=== PATIENT | female | born 1935 | race Caucasian/White ===

== ENCOUNTER → 2018-01-12 09:26 | Outpatient (CLI) | payer MEDICARE, SELFPAY ==
--- NOTE | 2018-01-12 | DI.MG.S_ITS ---
BILATERAL DIGITAL SCREENING MAMMOGRAM 3D/2D WITH CAD: 01/12/2018 CLINICAL: Routine screening. Family history of breast cancer. Comparison is made to exams dated: 01/01/2017 mammogram, 12/30/2015 mammogram, and 12/17/2014 mammogram - [facility]. There are scattered fibroglandular elements in both breasts. Current study was also evaluated with a Computer Aided Detection (CAD) system. There are benign vascular calcifications in both breasts. No significant masses, calcifications, or other findings are seen in either breast. There has been no significant interval change. IMPRESSION: BENIGN There is no mammographic evidence of malignancy. A 1 year screening mammogram is recommended. This exam was interpreted at Station ID: [id number]. NOTE: For mammograms, a report in lay terms will be sent to the patient. Approximately 15% of breast malignancies will not be visualized mammographically. In the management of a palpable breast mass, a negative mammogram must not discourage biopsy of a clinically suspicious lesion. Electronically Signed By: Shayla lea/herbert:01/14/2018 11:27:40 letter sent: Normal Exam ACR BI-RADS Category 2: Benign Finding(s) 3342F
== END ==
PROVIDERS: PCP Internal Medicine; Visit Provider Internal Medicine
DX: Z12.31 Encounter for screening mammogram for malignant neoplasm of breast (principal); Z80.3 Family history of malignant neoplasm of breast
CPT/HCPCS: 77063; 77067

== ENCOUNTER → 2018-10-29 09:49 | Outpatient (CLI) | payer MEDICARE, SELFPAY ==
--- NOTE | 2018-10-29 | DI.RAD.S_ITS ---
PROCEDURE: XR CHEST 2V INDICATIONS: ACUTE BRONCHITIS TECHNIQUE: 2 views of the chest were acquired. COMPARISON: None. FINDINGS: Surgical changes and devices: None. Lungs and pleura: Left lower lobe infiltrate suspicious for developing pneumonia. No pleural effusions or pneumothorax. Mediastinum: Mediastinal contours are normal. Heart size is normal. Bones and chest wall: No suspicious bony abnormalities. Soft tissues appear unremarkable. IMPRESSION: Left lower lobe infiltrate suspicious for developing pneumonia Dictated by: Leland Burrell M.D. on 10/29/2018 at 13:34 Approved by: Leland Burrell M.D. on 10/29/2018 at 13:35
== END ==
PROVIDERS: PCP Internal Medicine; Visit Provider Internal Medicine
DX: J20.9 Acute bronchitis, unspecified (principal)
CPT/HCPCS: 71046

== ENCOUNTER → 2019-01-28 09:37 | Outpatient (CLI) | payer MEDICARE, SELFPAY ==
--- NOTE | 2019-01-28 | DI.MG.S_ITS ---
BILATERAL DIGITAL SCREENING MAMMOGRAM 3D/2D WITH CAD: 01/28/2019 CLINICAL: Routine screening. Family history of breast cancer. Comparison is made to exams dated: 01/12/2018 mammogram, 01/01/2017 mammogram, and 12/30/2015 mammogram - [facility]. There are scattered fibroglandular elements in both breasts. Current study was also evaluated with a Computer Aided Detection (CAD) system. There are benign vascular calcifications in both breasts. No significant masses, calcifications, or other findings are seen in either breast. There has been no significant interval change. IMPRESSION: There is no mammographic evidence of malignancy. A 1 year screening mammogram is recommended. This exam was interpreted at Station ID: [id number]. NOTE: For mammograms, a report in lay terms will be sent to the patient. Approximately 15% of breast malignancies will not be visualized mammographically. In the management of a palpable breast mass, a negative mammogram must not discourage biopsy of a clinically suspicious lesion. Electronically Signed By: Shayla lea/herbert:01/28/2019 10:10:59 letter sent: Normal Exam ACR BI-RADS Category 2: Benign Finding(s) 3342F
== END ==
PROVIDERS: PCP Internal Medicine; Visit Provider Internal Medicine
DX: Z12.31 Encounter for screening mammogram for malignant neoplasm of breast (principal); Z80.3 Family history of malignant neoplasm of breast
CPT/HCPCS: 77063; 77067

== ENCOUNTER → 2019-02-05 09:29 | Outpatient (CLI) | payer MEDICARE, SELFPAY ==
--- NOTE | 2019-02-05 | DI.RAD.S_ITS ---
PROCEDURE: XR CHEST 2V INDICATIONS: CHEST X RAY/ CHRONIC BROCHITIS TECHNIQUE: 2 views of the chest were acquired. COMPARISON: [facility], CR, XR CHEST 2V, 10/29/2018, 9:56. FINDINGS: Surgical changes and devices: Cholecystectomy clips. Lungs and pleura: No consolidation. Increased interstitial markings. No pleural effusions or pneumothorax. Mediastinum: Mediastinal contours are normal. Heart size is upper limits of normal. Bones and chest wall: No suspicious bony abnormalities. Soft tissues appear unremarkable. IMPRESSION: No acute cardiopulmonary disease. Dictated by: Keegan Harvey [facility] Interpreted: Andres Jones MD on 02/05/2019 at 10:18 Approved by: Andres Jones M.D. on 02/05/2019 at 11:32
== END ==
PROVIDERS: PCP Internal Medicine; Visit Provider Internal Medicine
DX: J42 Unspecified chronic bronchitis (principal)
CPT/HCPCS: 71046

== ENCOUNTER 2019-04-29 09:20 | Emergency (ER) | payer MEDICARE, SELFPAY ==
[2019-04-29 09:29] VITALS: BMI 29.8
[2019-04-29 09:40] VITALS: BP 171/78; PULSE 67; RESP 16; TEMP 36.4; O2SAT 94
--- NOTE | 2019-04-29 10:29 | DI.MRI.S_ITS ---
PROCEDURE: MR LUMBAR SPINE WO/W CON INDICATIONS: low back pain, leg weakness, inability to urinate. TECHNIQUE: Noncontrast sagittal T1 spin echo and T2 fast spin echo, sagittal STIR, axial T1 and T2 fast spin echo through the lumbar spine. In cases with scoliosis, additional coronal T2 fast spin echo may be performed. After the administration of contrast, sagittal and axial T1 spin echo with fat saturation through the lumbar spine. COMPARISON: [facility], , L-SPINE 2-3 VIEWS, 02/27/2008, 9:42. FINDINGS: Image quality: Diagnostic with mild motion artifact. Alignment and curvature: There is grade 1 anterolisthesis of L4 on L5 measuring approximately 6 mm which appears increased from the prior x-ray. Mild retrolisthesis at L1-L2 measures approximately 3 mm, similar in appearance to the prior x-ray. There is minimal retrolisthesis at T12-L1 and L2-L3 also redemonstrated. Marrow: Marrow is of normal overall signal. No acute vertebral body compression fractures. No suspicious marrow enhancement. Spinal cord: Conus medullaris terminates at the L1-L2 level. Visualized spinal cord demonstrates normal signal, without suspicious enhancement. Paraspinous soft tissues: No paravertebral masses or fluid collections. There is periarticular soft tissue enhancement along the facet joints at L2-L3, L3-L4 L4-L5 and L5-S1 most prominent inferiorly compatible with sequela of facet arthropathy. There is a small atrophic left kidney noted. No evidence of hydronephrosis. T11-T12: Moderate loss of disc height with a small broad-based disc bulge. There is associated mild spinal canal narrowing and minimal bilateral neuroforaminal narrowing. T12-L1: Mild loss of disc height with a small broad-based disc bulge. There is associated mild spinal canal narrowing. No neuroforaminal narrowing. L1-L2: Mild loss of disc height with a broad-based disc bulge. There is mild facet arthropathy and ligamentum flavum hypertrophy. The findings contribute to mild spinal canal narrowing. There is mild to moderate bilateral neuroforaminal narrowing. L2-L3: Mild loss of disc height with a small broad-based disc bulge. There is mild facet arthropathy and ligamentum flavum hypertrophy. The findings contribute to moderate spinal canal narrowing with mild to moderate bilateral neuroforaminal narrowing. L3-L4: Mild loss of disc height with a small broad-based disc bulge. There is moderate facet arthropathy bilaterally as well as ligamentum flavum hypertrophy. Findings contribute to moderate to severe spinal canal narrowing with mild/moderate bilateral neuroforaminal narrowing. L4-L5: Mild to moderate loss of disc height with a broad-based disc bulge eccentric to the right. There is severe facet arthropathy and mild ligamentum flavum hypertrophy. The findings contribute to severe spinal canal narrowing with eccentric narrowing of the right lateral recess and apparent mass effect on the descending right L5 nerve root. There is moderate bilateral neuroforaminal narrowing. L5-S1: Mild loss of disc a with a small broad-based disc bulge eccentric to the right. There is mild facet arthropathy. There is associated mild overall spinal canal narrowing with mild to moderate narrowing of the right lateral recess. There is suggestion of mild mass effect on the descending right S1 nerve root. There is minimal right neuroforaminal narrowing. IMPRESSION: 1. Multilevel degenerative changes as described including severe spinal canal narrowing at L4-5 with eccentric narrowing of the right lateral recess and apparent mass effect on the descending right L5 nerve root. 2. Moderate severe spinal canal narrowing also demonstrated at L3-L4 and moderate narrowing at L2-L3. 3. Multilevel neuroforaminal narrowing including moderate narrowing bilaterally at L4-5. Dictated by: Sha Leon M.D. on 04/29/2019 at 12:28 Approved by: Sha Leon M.D. on 04/29/2019 at 12:46
[2019-04-29] MEDS: ONDANSETRON 4 MG/2 ML INJ IV (10:42)
[2019-04-29] MEDS: SODIUM CHLORIDE 0.9% 1,000 ML 1000 ML IV (10:42)
[2019-04-29] MEDS: HYDROMORPHONE 0.5 MG INJ IV (10:46)
[2019-04-29] MEDS: KETOROLAC 60 MG/2 ML VIAL 15 MG IV (10:46)
[2019-04-29 10:52] VITALS: BP 180/89; PULSE 77; RESP 16; O2SAT 98
[2019-04-29 10:58] LABS: Add Manual Diff / Slide Review NO; Basophils Absolute Auto 100 /uL (0-100); Basophils Percent Auto 0.6 % (0-2); Eosinophils Absolute Auto 100 /uL (0-450); Eosinophils Percent Auto 0.9 % (2-4); Hematocrit 50.2 % (36-46); Hemoglobin 17.3 g/dL (12.0-16.0); Lymphocytes Absolute Auto 1300 /uL (1100-4500); Lymphocytes Percent Auto 13.9 % (25-40); Mean Corpuscular HGB Conc 34.4 % (30-36); Mean Corpuscular Hemoglobin 33.4 PG (26-34); Monocytes Absolute Auto 2200 /uL (0-900); Monocytes Percent Auto 22.8 % (3-14); Neutrophils Absolute Auto 6000 /uL (1500-7000); Neutrophils Percent Auto 61.8 % (50-75); Platelet Count 398 X10^3/uL (150-400); Red Blood Cell Count 5.17 X10^6/uL (4.0-5.2); Red Cell Distribution Width 16.6 % (11.6-14.8); White Blood Cell Count 9.7 X10^3/uL (4.5-11.0)
[2019-04-29 11:03] LABS: Alanine Aminotransferase 13 IU/L (<35); Albumin 4.3 g/dL (3.5-5.0); Albumin Globulin Ratio 1.4 (1.0-2.8); Alkaline Phosphatase 72 U/L (38-126); Aspartate Aminotransferase 30 IU/L (14-36); BUN Creatinine Ratio 20.9 (6-22); Bilirubin Total 1.1 mg/dL (0.2-1.3); Blood Urea Nitrogen 23 mg/dL (7-17); C-Reactive Protein Quant 6.6 mg/dL (<1.0); Calcium 9.2 mg/dL (8.4-10.2); Carbon Dioxide 26 mmol/L (22-32); Chloride 95 mmol/L (98-107); Estimated Glomerular Filt Rate 47.3 mL/min (>60); Globulin 3.1 g/dL (1.7-4.1); Glucose 107 mg/dL (80-110); HEMOLYSIS 17 (0-50); Potassium 3.9 mmol/L (3.4-5.1); Sodium 132 mmol/L (137-145); Total Protein 7.4 g/dL (6.3-8.2)
--- NOTE | 2019-04-29 11:09 | ED_ITS ---
HPI - Back Pain/Injury General Chief Complaint: Back Pain/Injury Stated Complaint: back pain Time Seen by Provider: 04/29/19 09:25 Source: patient Mode of arrival: Ambulatory Limitations: no limitations History of Present Illness HPI Narrative: Patient comes emergency department complaining of low back pain for about a week. She states has been shooting down both legs, but worse on the right. She denies any numbness or tingling in her feet. No fevers or chills. No recent injury. Patient states that she has been able to urinate without difficulty, but states that at doctor Valles's office this morning, she was not able to get the urine out when she tried. The patient was sent here by Dr. Valles for further evaluation. According to direct conversation with Dr. Valles, he is concerned about potential cauda equina syndrome. The patient is not known to have a mass or other existing structural abnormality of the low spine. She is not an IV drug user. No other complaints at this time. The patient does note that she has been able to walk to the bathroom, though it hurts in her legs when she walks and also hurts in her back. She was noted by nurses to transfer from wheelchair to the bed without difficulty, and states she can move her legs around in the bed. Related Data Home Medications Medication Instructions Recorded Confirmed losartan 50 mg PO BID #0 07/30/12 04/29/19 carvedilol 25 mg PO BID 04/29/19 04/29/19 diphenhydramine HCl [Sleep Aid 25 mg PO BEDTIME PRN 04/29/19 04/29/19 (diphenhydramine)] hydrochlorothiazide 25 mg PO DAILY 04/29/19 04/29/19 lovastatin 40 mg PO QPM 04/29/19 04/29/19 methocarbamol 750 mg PO Q4H PRN 04/29/19 04/29/19 solifenacin 5 mg PO DAILY 04/29/19 04/29/19 spironolactone 25 mg PO 3XW 04/29/19 04/29/19 tolterodine 4 mg PO DAILY 04/29/19 04/29/19 Previous Rx's Medication Instructions Recorded hydrocodone-acetaminophen 1 tab PO Q4H PRN #30 tab 04/29/19 prednisone 40 mg PO DAILY #6 tab 04/29/19 Allergies Allergy/AdvReac Type Severity Reaction Status Date / Time amlodipine Allergy Verified 04/29/19 09:33 lisinopril Allergy Verified 04/29/19 09:33 nifedipine Allergy Verified 04/29/19 09:33 spironolactone Allergy Verified 04/29/19 09:33 Review of Systems Constitutional Constitutional: Denies chills, Denies fatigue, Denies fever(s), Denies frequent falls, Denies lethargy and Denies weakness Eyes Eyes: Denies change in vision, Denies eye discharge, Denies irritation and Denies loss of vision ENT Ears, Nose, Mouth, and Throat: Denies change in voice, Denies dizziness, Denies neck pain, Denies sore throat and Denies throat swelling Cardiovascular Cardiovascular: Denies chest pain, Denies irregular heart rhythm, Denies lightheadedness, Denies palpitations, Denies dyspnea, Denies dyspnea on exertion and Denies orthopnea Respiratory Respiratory: Denies cough, Denies dyspnea, Denies dyspnea on exertion and Denies wheezing Gastrointestinal Gastrointestinal: Denies abdominal pain, Denies change in bowel habits, Denies diarrhea, Denies nausea and Denies vomiting Genitourinary Genitourinary: Denies hematuria, Denies flank pain, Denies urinary incontinence and Denies urinary urgency Musculoskeletal Musculoskeletal: Reports back pain, Denies muscle weakness, Denies neck pain, Denies numbness and Denies tingling Integumentary/Breasts Skin/Breast: Denies pruritus, Denies erythema, Denies rash and Denies wounds Neurologic Neurologic: Denies behavioral changes, Denies confusion, Denies dizziness, Denies frequent falls, Denies loss of vision, Denies numbness, Denies tingling and Denies weakness Psychiatric Psychiatric: Denies anxiety, Denies behavioral changes, Denies confusion, Denies depression, Denies homicidal ideation and Denies suicidal ideation Endocrine Endocrine: Denies fatigue, Denies flushing and Denies palpitations Hematologic/Lymphatic Hematologic/Lymphatic: Denies easy bruising Allergic/Immunologic Allergic/Immunologic: Denies urticaria, Denies throat swelling and Denies whe ezing Patient History Medical History HTN (hypertension) (Acute) Social History Smoking Status: Smoker, status unknown Smoking Status: Smoker, status unknown Exam Initial Vital Signs Initial Vital Signs: Vital Signs Temperature 97.6 F 04/29/19 09:40 Pulse Rate 67 04/29/19 09:40 Respiratory Rate 16 04/29/19 09:40 Blood Pressure 171/78 H 04/29/19 09:40 Pulse Oximetry 94 04/29/19 09:40 Const General: cooperative and well developed Nutritional Appearance: well nourished Orientation: alert, awake, oriented x3 and not confused [facility] Head: normocephalic and atraumatic Ears: external ears normal Nose: external nose normal and No nasal discharge Face and sinus: face symmetric and No dry mucous membranes Mouth: oral mucosae normal and moist mucous membranes Teeth and gingiva: dentition normal Eyes General: appearance normal, both eyes and all related structures Eyelids: eyelids normal Conjunctivae: conjunctivae normal Sclera: sclerae normal Pupils: PERRL EOM: EOM intact bilaterally Neck Neck: normal visual inspection, trachea midline, No lymphadenopathy, No midline deformity and No JVD Lymphatic: No lymphedema Chest Chest: normal inspection of the chest Resp Effort & Inspection: normal respiratory effort, able to speak in complete sentences, no respiratory distress and no use of accessory muscles Auscultation: clear to auscultation bilaterally, no rales, no rhonchi and no wheezes Cardio Rate: regular rate Rhythm: regular rhythm Heart Sounds: no click, no gallops, no murmurs and no rubs Pulses: normal peripheral pulses GI Inspection: non-distended Palpation: soft, no hepatosplenomegaly, No guarding, No pulsatile mass and No tender Auscultation: normal bowel sounds Back/Spine/Pelvis Back: No CVA tenderness Cervical Spine: cervical ROM normal and No pain with cervical ROM Thoracic/Lumbar Spine: thoracic and lumbar spine normal to inspection Skin General: no rashes or lesions noted, No jaundice and No petechiae Neuro General: alert, oriented x3, gait normal and no focal motor deficits Speech: speech normal Extrem General: full ROM, no clubbing, cyanosis or edema, no pedal edema and no calf tenderness Psych Appearance: well kempt Mental Status: mental status grossly normal Attitude: cooperative Thought Content: normal and suicidality Judgment: judgment good Course Course Course Narrative: The patient was worked up with labs and MRI of the low spine. These were done and all found to be unremarkable. We've discussed the results of the workup, as well as home management of symptoms and need for follow-up. We've also discussed the usual indications for return. Orders Ordered: Discontinued Medications Hydromorphone HCl (Dilaudid) 0.5 mg IV NOW ONE Stop: 04/29/19 10:37 Last Admin: 04/29/19 10:46 Dose: 0.5 mg Documented by: JOHNATHAN Sodium Chloride (Normal Saline 0.9%) 1,000 mls @ 1,000 mls/hr IV BOLUS ONE Stop: 04/29/19 11:29 Last Infusion: 04/29/19 13:30 Dose: 0 mls/hr Documented by: Infusion: 04/29/19 11:45 Dose: 1,000 mls/hr Documented by: Infusion: 04/29/19 10:53 Dose: 0 mls/hr Documented by: Admin: 04/29/19 10:42 Dose: 1,000 mls/hr Documented by: JOHNATHAN Ketorolac Tromethamine (Toradol) 15 mg IV NOW ONE Stop: 04/29/19 10:37 Last Admin: 04/29/19 10:46 Dose: 15 mg Documented by: JOHNATHAN Ondansetron HCl (Zofran) 4 mg IV NOW ONE Stop: 04/29/19 10:31 Last Admin: 04/29/19 10:42 Dose: 4 mg Documented by: JOHNATHAN Vital Signs Vital signs: Vital Signs - 8 hr 04/29/19 09:40 04/29/19 10:52 Temperature 97.6 F Pulse Rate 67 77 Respiratory Rate 16 16 Blood Pressure [Right Arm] 171/78 H 180/89 H Pulse Oximetry 94 98 MDM - Back Pain/Injury Medical Records Attestation: I reviewed the patient's medical records. Lab Data Attestation: I reviewed the patient's lab results. Result diagrams: 04/29/19 10:38 04/29/19 10:38 Labs: Lab Results 04/29/19 04/29/19 Range/Units 10:38 10:38 WBC 9.7 (4.5-11.0) X10^3/uL RBC 5.17 (4.0-5.2) X10^6/uL Hgb 17.3 H (12.0-16.0) g/dL Hct 50.2 H (36-46) % MCV 97.0 (80-100) fL MCH 33.4 (26-34) PG MCHC 34.4 (30-36) % RDW 16.6 H (11.6-14.8) % Plt Count 398 (150-400) X10^3/uL Neut % (Auto) 61.8 (50-75) % Lymph % (Auto) 13.9 L (25-40) % Stokes % (Auto) 22.8 H (3-14) % Eos % (Auto) 0.9 L (2-4) % Baso % (Auto) 0.6 (0-2) % Neut # (Auto) 6000 (2261-3723) /uL Lymph # (Auto) 1300 (4416-9303) /uL Stokes # (Auto) 2200 H (0-900) /uL Eos # (Auto) 100 (0-450) /uL Baso # (Auto) 100 (0-100) /uL ESR 2 (0-20) MM/HR Sodium 132 L (137-145) mmol/L Potassium 3.9 (3.4-5.1) mmol/L Chloride 95 L (98-107) mmol/L Carbon Dioxide 26 (22-32) mmol/L BUN 23 H (7-17) mg/dL Creatinine 1.10 H (0.52-1.04) mg/dL Estimated GFR 47.3 L (>60) mL/min BUN/Creatinine Ratio 20.9 (6-22) Glucose 107 (80-110) mg/dL Calcium 9.2 (8.4-10.2) mg/dL Total Bilirubin 1.1 (0.2-1.3) mg/dL AST 30 (14-36) IU/L ALT 13 (<35) IU/L Alkaline Phosphatase 72 (38-126) U/L C-Reactive Protein 6.6 H (<1.0) mg/dL Total Protein 7.4 (6.3-8.2) g/dL Albumin 4.3 (3.5-5.0) g/dL Globulin 3.1 (1.7-4.1) g/dL Albumin/Globulin Ratio 1.4 (1.0-2.8) Imaging Data MRI lumbar spine: Radiologist's Impression: PROCEDURE: MR LUMBAR SPINE WO/W CON INDICATIONS: low back pain, leg weakness, inability to urinate. TECHNIQUE: Noncontrast sagittal T1 spin echo and T2 fast spin echo, sagittal STIR, axial T1 and T2 fast spin echo through the lumbar spine. In cases with scoliosis, additional coronal T2 fast spin echo may be performed. After the administration of contrast, sagittal and axial T1 spin echo with fat saturation through the lumbar spine. COMPARISON: [facility], , L-SPINE 2-3 VIEWS, 02/27/2008, 9:42. FINDINGS: Image quality: Diagnostic with mild motion artifact. Alignment and curvature: There is grade 1 anterolisthesis of L4 on L5 measuring approximately 6 mm which appears increased from the prior x-ray. Mild retrolisthesis at L1-L2 measures approximately 3 mm, similar in appearance to the prior x-ray. There is minimal retrolisthesis at T12-L1 and L2-L3 also redemonstrated. Marrow: Marrow is of normal overall signal. No acute vertebral body compression fractures. No suspicious marrow enhancement. Spinal cord: Conus medullaris terminates at the L1-L2 level. Visualized spinal cord demonstrates normal signal, without suspicious enhancement. Paraspinous soft tissues: No paravertebral masses or fluid collections. There is periarticular soft tissue enhancement along the facet joints at L2-L3, L3-L4 L4- L5 and L5-S1 most prominent inferiorly compatible with sequela of facet arthropathy. There is a small atrophic left kidney noted. No evidence of hydronephrosis. T11-T12: Moderate loss of disc height with a small broad-based disc bulge. There is associated mild spinal canal narrowing and minimal bilateral neuroforaminal narrowing. T12-L1: Mild loss of disc height with a small broad-based disc bulge. There is associated mild spinal canal narrowing. No neuroforaminal narrowing. L1-L2: Mild loss of disc height with a broad-based disc bulge. There is mild facet arthropathy and ligamentum flavum hypertrophy. The findings contribute to mild spinal canal narrowing. There is mild to moderate bilateral neuroforaminal narrowing. L2-L3: Mild loss of disc height with a small broad-based disc bulge. There is mild facet arthropathy and ligamentum flavum hypertrophy. The findings contribute to moderate spinal canal narrowing with mild to moderate bilateral neuroforaminal narrowing. L3-L4: Mild loss of disc height with a small broad-based disc bulge. There is moderate facet arthropathy bilaterally as well as ligamentum flavum hypertrophy. Findings contribute to moderate to severe spinal canal narrowing with mild/moderate bila teral neuroforaminal narrowing. L4-L5: Mild to moderate loss of disc height with a broad-based disc bulge eccentric to the right. There is severe facet arthropathy and mild ligamentum flavum hypert rophy. The findings contribute to severe spinal canal narrowing with eccentric narrowing of the right lateral recess and apparent mass effect on the descending right L5 nerve root. There is moderate bilateral neuroforaminal narrowing. L5-S1: Mild loss of disc a with a small broad-based disc bulge eccentric to the right. There is mild facet arthropathy. There is associated mild overall spinal canal narrowing with mild to moderate narrowing of the right lateral recess. There is suggestion of mild mass effect on the descending right S1 nerve root. There is minimal right neuroforaminal narrowing. IMPRESSION: 1. Multilevel degenerative changes as described including severe spinal canal narrowing at L4-5 with eccentric narrowing of the right lateral recess and apparent mass effect on the descending right L5 nerve root. 2. Moderate severe spinal canal narrowing also demonstrated at L3-L4 and moderate narrowing at L2-L3. 3. Multilevel neuroforaminal narrowing including moderate narrowing bilaterally at L4-5. Dictated by: Sha Leon M.D. on 04/29/2019 at 12:28 Approved by: Sha Leon M.D. on 04/29/2019 at 12:46 Discharge Plan Departure Patient Disposition: Home Clinical Impression: Back pain of lumbosacral region with sciatica Discharge Date/Time: 04/29/19 13:36 Instructions: DI for Back Pain With Sciatica Activity Restrictions/Additional Instructions: Your MRI shows many chronic changes in your lumbar spine, but nothing that is emergent or urgently concerning at this time. You will need to discuss with Dr. Valles whether you should follow-up with a cessation systems outreach specialist to see if surgery is an option for any of your back issues. You may take the pain medication, as needed for pain. Prescriptions: New prednisone 20 mg tablet 40 mg PO DAILY Qty: 6 RF: 0 hydrocodone-acetaminophen 5-325 mg tablet 1 tab PO Q4H PRN (Reason: pain) Qty: 30 RF: 0 No Action losartan 50 MG tablet 50 mg PO BID Qty: 0 RF: 0 carvedilol 25 mg tablet 25 mg PO BID RF: 0 hydrochlorothiazide 25 mg tablet 25 mg PO DAILY RF: 0 lovastatin 40 mg tablet 40 mg PO QPM RF: 0 spironolactone 25 mg tablet 25 mg PO 3XW RF: 0 methocarbamol 750 mg tablet 750 mg PO Q4H PRN (Reason: Back Pain) RF: 0 solifenacin 5 mg tablet 5 mg PO DAILY RF: 0 tolterodine 4 mg Capsule,Extended Release 24hr 4 mg PO DAILY RF: 0 diphenhydramine HCl [Sleep Aid (diphenhydramine)] 25 mg Tablet 25 mg PO BEDTIME PRN (Reason: Insomnia) RF: 0 Referrals: Estrada Valles MD [Primary Care Provider] -
[2019-04-29 11:18] LABS: Erythrocyte Sedimentation Rate 2 MM/HR (0-20)
== END 2019-04-29 13:36 | disposition home or self-care (01) ==
PROVIDERS: Emergency Provider Emergency Medicine; PCP Internal Medicine
DX: M54.40 Lumbago with sciatica, unspecified side (principal)
CPT/HCPCS: 36415; 72158; 80053; 85025; 85651; 86140; 96374; 96375; 99284; A9579; J1170; J1885; J2405

== ENCOUNTER 2019-07-11 15:36 | Inpatient (IN) | payer OTHER, SELFPAY ==
[2019-07-11] VITALS (9 sets, daily range): BP systolic 200–232; BP diastolic 100–119; PULSE 87–96; RESP 14–95; TEMP 36.8; O2SAT 93–99
--- NOTE | 2019-07-11 15:44 | ED.AMS ---
HPI - Altered Mental Status <Cindi Bustillos MD - Last Filed: 07/12/19 07:09> General Chief Complaint: Neuro Symptoms/Deficit Stated Complaint: Back pain Time Seen by Provider: 07/11/19 15:44 History of Present Illness HPI narrative: 84-year-old woman presents with altered mental status. She awoke this morning with increased confusion in global weakness. There was no obvious localizing signs to suggest an acute stroke on arrival. She is significantly hypertensive. She has no specific complaints and review of systems is quite limited due to her moderate confusion Related Data Home Medications Medication Instructions Recorded Confirmed losartan 50 mg PO BID #0 07/30/12 07/11/19 carvedilol 25 mg PO BID 04/29/19 07/11/19 diphenhydramine HCl [Sleep Aid 25 mg PO BEDTIME PRN 04/29/19 07/11/19 (diphenhydramine)] lovastatin 40 mg PO QPM 04/29/19 07/11/19 solifenacin 5 mg PO DAILY 04/29/19 07/11/19 spironolactone 25 mg PO 3XW 04/29/19 07/11/19 methocarbamol 750 mg PO PRN PRN 07/12/19 07/12/19 Allergies Allergy/AdvReac Type Severity Reaction Status Date / Time amlodipine Allergy Verified 04/29/19 09:33 lisinopril Allergy Verified 04/29/19 09:33 nifedipine Allergy Verified 04/29/19 09:33 spironolactone Allergy Verified 04/29/19 09:33 <Kelby Lombardi DO - Last Filed: 07/12/19 06:08> General Source: patient and family History of Present Illness HPI narrative: 84-year-old female with history of hypertension presents with a chief complaint of headache, confusion and severe low back pain radiating to her legs. She states this has been going on over the course of the day, she states she is taking her medications as prescribed. Her blood pressures been in the 230s over 130s. She denies any blurred vision, trouble with speech or focal neurologic findings such as numbness, tingling or weakness. She has very severe low back pain that radiates into both legs. She denies any loss of control of bowel or bladder nor any lower extremity weakness. Daughter is at the bedside and states that she has had occurrences of blood pressure fluctuation but not like this. She denies any dietary change, recent travel or obvious injury MD complaint: altered mental status and confusion Onset (ago): day(s) Timing confirmed by: family member Severity: moderate Consistency of symptoms: getting worse Review of Systems <Cindi Bustillos MD - Last Filed: 07/12/19 07:09> Review of Systems ROS Unobtainable: Unobtainable due to mental status/LOC <Kelby Lombardi DO - Last Filed: 07/12/19 06:08> Constitutional Constitutional: Denies chills, Denies fatigue, Denies fever(s), Denies frequent falls, Denies lethargy and Denies weakness Eyes Eyes: Denies change in vision, Denies eye discharge, Denies irritation and Denies loss of vision ENT Ears, Nose, Mouth, and Throat: Denies change in voice, Denies dizziness, Denies neck pain, Denies sore throat and Denies throat swelling Cardiovascular Cardiovascular: Denies chest pain, Denies irregular heart rhythm, Denies lightheadedness, Denies palpitations, Denies dyspnea, Denies dyspnea on exertion and Denies orthopnea Respiratory Respiratory: Denies cough, Denies dyspnea, Denies dyspnea on exertion and Denies wheezing Gastrointestinal Gastrointestinal: Denies abdominal pain, Denies change in bowel habits, Denies diarrhea, Denies nausea and Denies vomiting Genitourinary Genitourinary: Denies hematuria, Denies flank pain, Denies urinary incontinence and Denies urinary urgency Musculoskeletal Musculoskeletal: Denies back pain, Denies muscle weakness, Denies neck pain, Denies numbness and Denies tingling Integumentary/Breasts Skin/Breast: Denies pruritus, Denies erythema, Denies rash and Denies wounds Neurologic Neurologic: Denies behavioral changes, Denies confusion, Denies dizziness, Denies frequent falls, Denies loss of vision, Denies numbness, Denies tingling and Denies weakness Psychiatric Psychiatric: Denies anxiety, Denies behavioral changes, Denies confusion, Denies depression, Denies homicidal ideation and Denies suicidal ideation Endocrine Endocrine: Denies fatigue, Denies flushing and Denies palpitations Hematologic/Lymphatic Hematologic/Lymphatic: Denies easy bruising Allergic/Immunologic Allergic/Immunologic: Denies urticaria, Denies throat swelling and Denies wheezing Patient History <Cindi Bustillos MD - Last Filed: 07/12/19 07:09> Social History household members: none Smoking Status: Former smoker Smoking Status: Smoker, status unknown Exam <Cindi Bustillos MD - Last Filed: 07/12/19 07:09> Initial Vital Signs Initial Vital Signs: Vital Signs Temperature 98.3 F 07/11/19 16:00 Pulse Rate 96 H 07/11/19 16:00 Respiratory Rate 95 H 07/11/19 16:00 Blood Pressure 214/119 H 07/11/19 16:00 Pulse Oximetry 99 07/11/19 16:00 <Kelby Lombardi DO - Last Filed: 07/12/19 06:08> Narrative Exam Narrative: GENERAL: [84] year old patient appears stated age. Well-nourished, well-developed patient, in mild distress. Pleasantly confused some repetitive questioning and inaccurate answers to basic questions which daughter states she would normally know HEAD: Atraumatic. Normocephalic. EYES: Pupils equal round and reactive. Extraocular motions intact. No scleral icterus. No injection or drainage. ENT: Nose without bleeding, purulent drainage. Throat without erythema, tonsillar hypertrophy or exudate. Airway patent. NECK: Trachea midline. Non tender CARDIOVASCULAR: Regular rate and rhythm without murmurs, gallops, or rubs. RESPIRATORY: Clear to auscultation. Breath sounds equal bilaterally. No wheezes, rales, or rhonchi. GASTROINTESTINAL: Abdomen soft, non-tender, nondistended. EXTREMITIES: No edema or joint tenderness. BACK: Patient has some lower midline tenderness that seems to be exacerbated by any motion. No saddle anesthesia. Bilateral patellar reflexes 1+. NEURO: AOx3. SKIN: No rash or erythema of visible areas Initial Vital Signs Initial Vital Signs: Vital Signs Temperature 98.3 F 07/11/19 16:00 Pulse Rate 96 H 07/11/19 16:00 Respiratory Rate 95 H 07/11/19 16:00 Blood Pressure 214/119 H 07/11/19 16:00 Pulse Oximetry 99 07/11/19 16:00 <Kelby Lombardi DO - Last Filed: 07/12/19 06:08> GCS Vernell coma scale eye opening: Spontaneous Jerome coma scale verbal response: Confused Vernell coma scale motor response: Obey commands Jerome coma scale total score: 14 Course <Cindi Bustillos MD - Last Filed: 07/12/19 07:09> Orders Ordered: Acetaminophen (Tylenol) 650 mg PO Q6HR PRN PRN Reason: Fever/Mild Pain (1-3) Al Hydrox/Mg Hydrox/Simethicone (Maalox Plus) 30 ml PO Q6HR PRN PRN Reason: Dyspepsia Calcium Carbonate (Tums) 1,000 mg PO Q4HR PRN PRN Reason: Dyspepsia Enoxaparin Sodium (Lovenox) 40 mg SUBCUT DAILY [facility] Hydralazine HCl (Apresoline) 10 mg IV Q6HR PRN PRN Reason: Hypertension Esmolol HCl (Brevibloc) 2.5 gm in 250 mls @ 24.29 mls/hr IV TITRATE [facility]; Protocol Last Titration: 07/11/19 21:05 Dose: 0 mcg/kg/min, 0 mls/hr Documented by: Titration: 07/11/19 20:04 Dose: 0 mcg/kg/min, 0 mls/hr Documented by: Admin: 07/11/19 19:04 Dose: 50 mcg/kg/min, 24.29 mls/hr Documented by: DEANGELO Sodium Chloride (Normal Saline 0.9%) 1,000 mls @ 100 mls/hr IV CONT [facility] Last Admin: 07/12/19 03:47 Dose: 100 mls/hr Documented by: ARON Ceftriaxone Sodium/Dextrose (Rocephin) 1 gm in 50 mls @ 100 mls/hr IV Q24H [facility] Azithromycin 500 mg/ Dextrose 250 mls @ 250 mls/hr IV Q24H [facility] Stop: 07/14/19 03:16 Last Admin: 07/12/19 03:57 Dose: 250 mls/hr Documented by: ARON Labetalol HCl (Trandate) 10 mg IV Q4HR PRN PRN Reason: Hypertension Naloxone HCl (Narcan) 0.2 mg IV Q2MIN PRN PRN Reason: Opiate Reversal Ondansetron HCl (Zofran) 4 mg IV Q8HR PRN PRN Reason: Nausea And Vomiting Discontinued Medications Hydralazine HCl (Apresoline) 10 mg IV NOW ONE Stop: 07/11/19 23:26 Last Admin: 07/11/19 23:46 Dose: 10 mg Documented by: ERROL Ceftriaxone Sodium/Dextrose (Rocephin) 1 gm in 50 mls @ 100 mls/hr IV NOW ONE Stop: 07/12/19 00:43 Last Admin: 07/12/19 00:45 Dose: 100 mls/hr Documented by: ERROL Labetalol HCl (Trandate) 10 mg IV NOW ONE Stop: 07/11/19 17:48 Last Admin: 07/11/19 17:56 Dose: 10 mg Documented by: APPLE Nitroglycerin (Nitrostat) 0.4 mg SL NOW ONE Stop: 07/11/19 19:57 Last Admin: 07/11/19 20:05 Dose: 0.4 mg Documented by: ERROL Nitroglycerin (Nitro-Bid) 0.5 inch TOP NOW ONE Stop: 07/11/19 21:07 Last Admin: 07/11/19 21:12 Dose: 0.5 inch Documented by: ERROL Vital Signs Vital signs: Vital Signs - 8 hr 07/11/19 23:46 07/12/19 00:30 Pulse Rate 92 H 99 H Blood Pressure 201/100 H Blood Pressure [Left Arm] 186/86 H <Kelby Lombardi DO - Last Filed: 07/12/19 06:08> Course Course Narrative: Patient presents with an encephalopathy that is initially thought to be related to her blood pressure. Labetalol resulted in minimal change. Patient has an allergy to calcium channel blockers and though she does not know her reaction states that she has this stated allergy. She is given 1 nitro sublingual which improved her blood pressure about 20 points and it seems that with this reduction her mental clarity improves a bit but not completely. She is in given a nitro paste which seems to hold her study. Urine is found to demonstrate infection and this is treated as well. Finally when the nitropaste wears off her blood pressure comes back up and it seems that her mental status follows along with it. She is given hydralazine which brings her down to about 180. Patient requires hospitalization given her blood pressure elevation with associated symptoms. Her encephalopathy is likely multifactorial includes urinary tract infection as well. Orders Ordered: Acetaminophen (Tylenol) 650 mg PO Q6HR PRN PRN Reason: Fever/Mild Pain (1-3) Al Hydrox/Mg Hydrox/Simethicone (Maalox Plus) 30 ml PO Q6HR PRN PRN Reason: Dyspepsia Calcium Carbonate (Tums) 1,000 mg PO Q4HR PRN PRN Reason: Dyspepsia Enoxaparin Sodium (Lovenox) 40 mg SUBCUT DAILY [facility] Hydralazine HCl (Apresoline) 10 mg IV Q6HR PRN PRN Reason: Hypertension Esmolol HCl (Brevibloc) 2.5 gm in 250 mls @ 24.29 mls/hr IV TITRATE [facility]; Protocol Last Titration: 07/11/19 21:05 Dose: 0 mcg/kg/min, 0 mls/hr Documented by: Titration: 07/11/19 20:04 Dose: 0 mcg/kg/min, 0 mls/hr Documented by: Admin: 07/11/19 19:04 Dose: 50 mcg/kg/min, 24.29 mls/hr Documented by: DEANGELO Sodium Chloride (Normal Saline 0.9%) 1,000 mls @ 100 mls/hr IV CONT [facility] Last Admin: 07/12/19 03:47 Dose: 100 mls/hr Documented by: ARON Ceftriaxone Sodium/Dextrose (Rocephin) 1 gm in 50 mls @ 100 mls/hr IV Q24H [facility] Azithromycin 500 mg/ Dextrose 250 mls @ 250 mls/hr IV Q24H [facility] Stop: 07/14/19 03:16 Last Admin: 07/12/19 03:57 Dose: 250 mls/hr Documented by: ARON Labetalol HCl (Trandate) 10 mg IV Q4HR PRN PRN Reason: Hypertension Naloxone HCl (Narcan) 0.2 mg IV Q2MIN PRN PRN Reason: Opiate Reversal Ondansetron HCl (Zofran) 4 mg IV Q8HR PRN PRN Reason: Nausea And Vomiting Discontinued Medications Hydralazine HCl (Apresoline) 10 mg IV NOW ONE Stop: 07/11/19 23:26 Last Admin: 07/11/19 23:46 Dose: 10 mg Documented by: ERROL Ceftriaxone Sodium/Dextrose (Rocephin) 1 gm in 50 mls @ 100 mls/hr IV NOW ONE Stop: 07/12/19 00:43 Last Admin: 07/12/19 00:45 Dose: 100 mls/hr Documented by: ERROL Labetalol HCl (Trandate) 10 mg IV NOW ONE Stop: 07/11/19 17:48 Last Admin: 07/11/19 17:56 Dose: 10 mg Documented by: APPLE Nitroglycerin (Nitrostat) 0.4 mg SL NOW ONE Stop: 07/11/19 19:57 Last Admin: 07/11/19 20:05 Dose: 0.4 mg Documented by: ERROL Nitroglycerin (Nitro-Bid) 0.5 inch TOP NOW ONE Stop: 07/11/19 21:07 Last Admin: 07/11/19 21:12 Dose: 0.5 inch Documented by: ERROL Vital Signs Vital signs: Vital Signs - 8 hr 07/11/19 23:46 07/12/19 00:30 Pulse Rate 92 H 99 H Blood Pressure 201/100 H Blood Pressure [Left Arm] 186/86 H MDM - Altered Mental Status <Cindi Bustillos MD - Last Filed: 07/12/19 07:09> Lab Data Result diagrams: 07/11/19 15:38 07/11/19 15:38 Labs: Lab Results 07/11/19 07/11/19 07/11/19 Range/Units 15:38 15:38 15:38 WBC 13.0 H (4.5-11.0) X10^3/uL RBC 5.97 H (4.0-5.2) X10^6/uL Hgb 18.8 H (12.0-16.0) g/dL Hct 56.2 H (36-46) % MCV 94.1 (80-100) fL MCH 31.5 (26-34) PG MCHC 33.5 (30-36) % RDW 16.7 H (11.6-14.8) % Plt Count 386 (150-400) X10^3/uL Neut % (Auto) 59.2 (50-75) % Lymph % (Auto) 10.9 L (25-40) % Gem % (Auto) 29.2 H (3-14) % Eos % (Auto) 0.3 L (2-4) % Baso % (Auto) 0.4 (0-2) % Neut # (Auto) 7700 H (9939-0658) /uL Lymph # (Auto) 1400 (3769-4102) /uL Gem # (Auto) 3800 H (0-900) /uL Eos # (Auto) 0 (0-450) /uL Baso # (Auto) 100 (0-100) /uL PT 13.7 H (10.1-12.7) SECONDS INR 1.2 (0.9-1.3) APTT 37 H (26.4-36.2) SECONDS Sodium (137-145) mmol/L Potassium (3.4-5.1) mmol/L Chloride (98-107) mmol/L Carbon Dioxide (22-32) mmol/L BUN (7-17) mg/dL Creatinine (0.52-1.04) mg/dL Estimated GFR (>60) mL/min BUN/Creatinine Ratio (6-22) Glucose (80-110) mg/dL Lactate (0.7-2.1) mmol/L Calcium (8.4-10.2) mg/dL Magnesium (1.6-2.3) mg/dL Total Bilirubin (0.2-1.3) mg/dL AST (14-36) IU/L ALT (<35) IU/L Alkaline Phosphatase (38-126) U/L Total Protein (6.3-8.2) g/dL Albumin (3.5-5.0) g/dL Globulin (1.7-4.1) g/dL Albumin/Globulin Ratio (1.0-2.8) Lipase (23-300) U/L Procalcitonin < 0.05 (<0.5) ng/mL Urine Color Urine Appearance Urine pH (4.5-8.0) Ur Specific [employer] (1.000-1.035) Urine Protein (Negative) Urine Glucose (UA) (Negative) g/dL Urine Ketones (NEGATIVE) Urine Occult Blood (Negative) Urine Nitrate (Negative) Urine Bilirubin (NEGATIVE) Ur Bilirubin Confirm (Negative) Urine Urobilinogen (0.2) E.U./dL Ur Leukocyte Esterase (NEGATIVE) Urine RBC (0-5/HPF) Urine WBC (0-5/HPF) Ur Squamous Epith Cells (0-5/HPF) Amorphous Sediment Urine Bacteria (None) Urine Mucus (Negative) Ur Culture Indicated? 07/11/19 07/11/19 07/11/19 Range/Units 15:38 16:30 16:37 WBC (4.5-11.0) X10^3/uL RBC (4.0-5.2) X10^6/uL Hgb (12.0-16.0) g/dL Hct (36-46) % MCV (80-100) fL MCH (26-34) PG MCHC (30-36) % RDW (11.6-14.8) % Plt Count (150-400) X10^3/uL Neut % (Auto) (50-75) % Lymph % (Auto) (25-40) % Gem % (Auto) (3-14) % Eos % (Auto) (2-4) % Baso % (Auto) (0-2) % Neut # (Auto) (1202-7635) /uL Lymph # (Auto) (2652-9556) /uL Gem # (Auto) (0-900) /uL Eos # (Auto) (0-450) /uL Baso # (Auto) (0-100) /uL PT (10.1-12.7) SECONDS INR (0.9-1.3) APTT (26.4-36.2) SECONDS Sodium 140 (137-145) mmol/L Potassium 3.5 (3.4-5.1) mmol/L Chloride 102 (98-107) mmol/L Carbon Dioxide 24 (22-32) mmol/L BUN 21 H (7-17) mg/dL Creatinine 1.10 H (0.52-1.04) mg/dL Estimated GFR 47.3 L (>60) mL/min BUN/Creatinine Ratio 19.1 (6-22) Glucose 145 H (80-110) mg/dL Lactate 1.1 (0.7-2.1) mmol/L Calcium 9.6 (8.4-10.2) mg/dL Magnesium (1.6-2.3) mg/dL Total Bilirubin 1.4 H (0.2-1.3) mg/dL AST 40 H (14-36) IU/L ALT 15 (<35) IU/L Alkaline Phosphatase 70 (38-126) U/L Total Protein 8.4 H (6.3-8.2) g/dL Albumin 4.8 (3.5-5.0) g/dL Globulin 3.6 (1.7-4.1) g/dL Albumin/Globulin Ratio 1.3 (1.0-2.8) Lipase 28 (23-300) U/L Procalcitonin (<0.5) ng/mL Urine Color Dark yellow Urine Appearance Cloudy Urine pH 5.5 (4.5-8.0) Ur Specific [employer] >=1.030 H (1.000-1.035) Urine Protein 3+ H (Negative) Urine Glucose (UA) Negative (Negative) g/dL Urine Ketones 1+ H (NEGATIVE) Urine Occult Blood Trace-lysed (Negative) Urine Nitrate Negative (Negative) Urine Bilirubin 1+ H (NEGATIVE) Ur Bilirubin Confirm Negative (Negative) Urine Urobilinogen 0.2 (0.2) E.U./dL Ur Leukocyte Esterase 1+ H (NEGATIVE) Urine RBC 0-1/hpf (0-5/HPF) Urine WBC 10-30/hpf H (0-5/HPF) Ur Squamous Epith Cells 1-5 /hpf (0-5/HPF) Amorphous Sediment 1+ Urine Bacteria Many (>30) H (None) Urine Mucus 2+ H (Negative) Ur Culture Indicated? Specimen cultured 07/11/19 Range/Units 16:37 WBC (4.5-11.0) X10^3/uL RBC (4.0-5.2) X10^6/uL Hgb (12.0-16.0) g/dL Hct (36-46) % MCV (80-100) fL MCH (26-34) PG MCHC (30-36) % RDW (11.6-14.8) % Plt Count (150-400) X10^3/uL Neut % (Auto) (50-75) % Lymph % (Auto) (25-40) % Gem % (Auto) (3-14) % Eos % (Auto) (2-4) % Baso % (Auto) (0-2) % Neut # (Auto) (5377-8288) /uL Lymph # (Auto) (7509-9473) /uL Gem # (Auto) (0-900) /uL Eos # (Auto) (0-450) /uL Baso # (Auto) (0-100) /uL PT (10.1-12.7) SECONDS INR (0.9-1.3) APTT (26.4-36.2) SECONDS Sodium (137-145) mmol/L Potassium (3.4-5.1) mmol/L Chloride (98-107) mmol/L Carbon Dioxide (22-32) mmol/L BUN (7-17) mg/dL Creatinine (0.52-1.04) mg/dL Estimated GFR (>60) mL/min BUN/Creatinine Ratio (6-22) Glucose (80-110) mg/dL Lactate (0.7-2.1) mmol/L Calcium (8.4-10.2) mg/dL Magnesium 1.8 (1.6-2.3) mg/dL Total Bilirubin (0.2-1.3) mg/dL AST (14-36) IU/L ALT (<35) IU/L Alkaline Phosphatase (38-126) U/L Total Protein (6.3-8.2) g/dL Albumin (3.5-5.0) g/dL Globulin (1.7-4.1) g/dL Albumin/Globulin Ratio (1.0-2.8) Lipase (23-300) U/L Procalcitonin (<0.5) ng/mL Urine Color Urine Appearance Urine pH (4.5-8.0) Ur Specific [employer] (1.000-1.035) Urine Protein (Negative) Urine Glucose (UA) (Negative) g/dL Urine Ketones (NEGATIVE) Urine Occult Blood (Negative) Urine Nitrate (Negative) Urine Bilirubin (NEGATIVE) Ur Bilirubin Confirm (Negative) Urine Urobilinogen (0.2) E.U./dL Ur Leukocyte Esterase (NEGATIVE) Urine RBC (0-5/HPF) Urine WBC (0-5/HPF) Ur Squamous Epith Cells (0-5/HPF) Amorphous Sediment Urine Bacteria (None) Urine Mucus (Negative) Ur Culture Indicated? <Kelby Lombardi DO - Last Filed: 07/12/19 06:08> Lab Data Labs: Lab Results 07/11/19 07/11/19 07/11/19 Range/Units 15:38 15:38 15:38 WBC 13.0 H (4.5-11.0) X10^3/uL RBC 5.97 H (4.0-5.2) X10^6/uL Hgb 18.8 H (12.0-16.0) g/dL Hct 56.2 H (36-46) % MCV 94.1 (80-100) fL MCH 31.5 (26-34) PG MCHC 33.5 (30-36) % RDW 16.7 H (11.6-14.8) % Plt Count 386 (150-400) X10^3/uL Neut % (Auto) 59.2 (50-75) % Lymph % (Auto) 10.9 L (25-40) % Gem % (Auto) 29.2 H (3-14) % Eos % (Auto) 0.3 L (2-4) % Baso % (Auto) 0.4 (0-2) % Neut # (Auto) 7700 H (2319-5387) /uL Lymph # (Auto) 1400 (6129-1685) /uL Gem # (Auto) 3800 H (0-900) /uL Eos # (Auto) 0 (0-450) /uL Baso # (Auto) 100 (0-100) /uL PT 13.7 H (10.1-12.7) SECONDS INR 1.2 (0.9-1.3) APTT 37 H (26.4-36.2) SECONDS Sodium (137-145) mmol/L Potassium (3.4-5.1) mmol/L Chloride (98-107) mmol/L Carbon Dioxide (22-32) mmol/L BUN (7-17) mg/dL Creatinine (0.52-1.04) mg/dL Estimated GFR (>60) mL/min BUN/Creatinine Ratio (6-22) Glucose (80-110) mg/dL Lactate (0.7-2.1) mmol/L Calcium (8.4-10.2) mg/dL Magnesium (1.6-2.3) mg/dL Total Bilirubin (0.2-1.3) mg/dL AST (14-36) IU/L ALT (<35) IU/L Alkaline Phosphatase (38-126) U/L Total Protein (6.3-8.2) g/dL Albumin (3.5-5.0) g/dL Globulin (1.7-4.1) g/dL Albumin/Globulin Ratio (1.0-2.8) Lipase (23-300) U/L Procalcitonin < 0.05 (<0.5) ng/mL Urine Color Urine Appearance Urine pH (4.5-8.0) Ur Specific [employer] (1.000-1.035) Urine Protein (Negative) Urine Glucose (UA) (Negative) g/dL Urine Ketones (NEGATIVE) Urine Occult Blood (Negative) Urine Nitrate (Negative) Urine Bilirubin (NEGATIVE) Ur Bilirubin Confirm (Negative) Urine Urobilinogen (0.2) E.U./dL Ur Leukocyte Esterase (NEGATIVE) Urine RBC (0-5/HPF) Urine WBC (0-5/HPF) Ur Squamous Epith Cells (0-5/HPF) Amorphous Sediment Urine Bacteria (None) Urine Mucus (Negative) Ur Culture Indicated? 07/11/19 07/11/19 07/11/19 Range/Units 15:38 16:30 16:37 WBC (4.5-11.0) X10^3/uL RBC (4.0-5.2) X10^6/uL Hgb (12.0-16.0) g/dL Hct (36-46) % MCV (80-100) fL MCH (26-34) PG MCHC (30-36) % RDW (11.6-14.8) % Plt Count (150-400) X10^3/uL Neut % (Auto) (50-75) % Lymph % (Auto) (25-40) % Gem % (Auto) (3-14) % Eos % (Auto) (2-4) % Baso % (Auto) (0-2) % Neut # (Auto) (7667-3459) /uL Lymph # (Auto) (5402-5056) /uL Gem # (Auto) (0-900) /uL Eos # (Auto) (0-450) /uL Baso # (Auto) (0-100) /uL PT (10.1-12.7) SECONDS INR (0.9-1.3) APTT (26.4-36.2) SECONDS Sodium 140 (137-145) mmol/L Potassium 3.5 (3.4-5.1) mmol/L Chloride 102 (98-107) mmol/L Carbon Dioxide 24 (22-32) mmol/L BUN 21 H (7-17) mg/dL Creatinine 1.10 H (0.52-1.04) mg/dL Estimated GFR 47.3 L (>60) mL/min BUN/Creatinine Ratio 19.1 (6-22) Glucose 145 H (80-110) mg/dL Lactate 1.1 (0.7-2.1) mmol/L Calcium 9.6 (8.4-10.2) mg/dL Magnesium (1.6-2.3) mg/dL Total Bilirubin 1.4 H (0.2-1.3) mg/dL AST 40 H (14-36) IU/L ALT 15 (<35) IU/L Alkaline Phosphatase 70 (38-126) U/L Total Protein 8.4 H (6.3-8.2) g/dL Albumin 4.8 (3.5-5.0) g/dL Globulin 3.6 (1.7-4.1) g/dL Albumin/Globulin Ratio 1.3 (1.0-2.8) Lipase 28 (23-300) U/L Procalcitonin (<0.5) ng/mL Urine Color Dark yellow Urine Appearance Cloudy Urine pH 5.5 (4.5-8.0) Ur Specific [employer] >=1.030 H (1.000-1.035) Urine Protein 3+ H (Negative) Urine Glucose (UA) Negative (Negative) g/dL Urine Ketones 1+ H (NEGATIVE) Urine Occult Blood Trace-lysed (Negative) Urine Nitrate Negative (Negative) Urine Bilirubin 1+ H (NEGATIVE) Ur Bilirubin Confirm Negative (Negative) Urine Urobilinogen 0.2 (0.2) E.U./dL Ur Leukocyte Esterase 1+ H (NEGATIVE) Urine RBC 0-1/hpf (0-5/HPF) Urine WBC 10-30/hpf H (0-5/HPF) Ur Squamous Epith Cells 1-5 /hpf (0-5/HPF) Amorphous Sediment 1+ Urine Bacteria Many (>30) H (None) Urine Mucus 2+ H (Negative) Ur Culture Indicated? Specimen cultured 07/11/19 Range/Units 16:37 WBC (4.5-11.0) X10^3/uL RBC (4.0-5.2) X10^6/uL Hgb (12.0-16.0) g/dL Hct (36-46) % MCV (80-100) fL MCH (26-34) PG MCHC (30-36) % RDW (11.6-14.8) % Plt Count (150-400) X10^3/uL Neut % (Auto) (50-75) % Lymph % (Auto) (25-40) % Gem % (Auto) (3-14) % Eos % (Auto) (2-4) % Baso % (Auto) (0-2) % Neut # (Auto) (1656-7682) /uL Lymph # (Auto) (5920-8083) /uL Gem # (Auto) (0-900) /uL Eos # (Auto) (0-450) /uL Baso # (Auto) (0-100) /uL PT (10.1-12.7) SECONDS INR (0.9-1.3) APTT (26.4-36.2) SECONDS Sodium (137-145) mmol/L Potassium (3.4-5.1) mmol/L Chloride (98-107) mmol/L Carbon Dioxide (22-32) mmol/L BUN (7-17) mg/dL Creatinine (0.52-1.04) mg/dL Estimated GFR (>60) mL/min BUN/Creatinine Ratio (6-22) Glucose (80-110) mg/dL Lactate (0.7-2.1) mmol/L Calcium (8.4-10.2) mg/dL Magnesium 1.8 (1.6-2.3) mg/dL Total Bilirubin (0.2-1.3) mg/dL AST (14-36) IU/L ALT (<35) IU/L Alkaline Phosphatase (38-126) U/L Total Protein (6.3-8.2) g/dL Albumin (3.5-5.0) g/dL Globulin (1.7-4.1) g/dL Albumin/Globulin Ratio (1.0-2.8) Lipase (23-300) U/L Procalcitonin (<0.5) ng/mL Urine Color Urine Appearance Urine pH (4.5-8.0) Ur Specific [employer] (1.000-1.035) Urine Protein (Negative) Urine Glucose (UA) (Negative) g/dL Urine Ketones (NEGATIVE) Urine Occult Blood (Negative) Urine Nitrate (Negative) Urine Bilirubin (NEGATIVE) Ur Bilirubin Confirm (Negative) Urine Urobilinogen (0.2) E.U./dL Ur Leukocyte Esterase (NEGATIVE) Urine RBC (0-5/HPF) Urine WBC (0-5/HPF) Ur Squamous Epith Cells (0-5/HPF) Amorphous Sediment Urine Bacteria (None) Urine Mucus (Negative) Ur Culture Indicated? Imaging Data CT scan - head: Radiologist's Impression: Re Goff 84 F [address] [address] [address] Scan Report Signed Patient: Re Goff BMR#: [id number] : 5Acct:[id number] Age/Sex: 84 / FDate of Service: 07/11/19 Loc: ED Accession Number: [id number] Procedure: CT head/brain wo con Ordering Provider: Cindi Bustillos MD PROCEDURE: CT HEAD/BRAIN WO CON INDICATIONS: altered mental status TECHNIQUE: Noncontrast 4.5 mm thick angled axial sections acquired from the foramen magnum to the vertex, with coronal and sagittal reformats. For radiation dose reduction, the following was used: automated exposure control, adjustment of mA and/or kV according to patient size. COMPARISON: None. FINDINGS: Image quality: Excellent. CSF spaces: Basal cisterns are patent. No extra-axial fluid collections. The ventricles are symmetric in size and shape. Brain: No intracranial bleeds or masses. There is cerebral volume loss for age, with resultant ventricular and sulcal prominence. There are periventricular and deep white matter chronic small vessel ischemic changes. There is intracranial internal carotid artery atherosclerosis. Skull and face: Calvarium and visualized facial bones appear intact, without suspicious lesions. Sinuses: Moderate mucosal thickening within the sphenoid sinus. Visualized sinuses and mastoids are otherwise clear. IMPRESSION: No acute intracranial abnormality. Dictated by: Robin Chaudhry M.D. on 07/11/2019 at 18:49 MRI Lumbar: Radiologist's Impression: Re Goff 84 F [address] [address] Magnetic Resonance Report Signed Patient: Re Goff BMR#: [id number] : 5Acct:[id number] Age/Sex: 84 / FDate of Service: 07/11/19 Loc: ED Accession Number: [id number] Procedure: MR lumbar spine wo con Ordering Provider: Kelby Lombardi D.O. PROCEDURE: MR LUMBAR SPINE WO CON INDICATIONS: pain in back, B/L LE weakness, pain, numbness TECHNIQUE: Noncontrast sagittal T1 spin echo and T2 fast echo, sagittal STIR, axial T1 and T2 fast spin echo through the lumbar spine. In cases with scoliosis, additional coronal T2 fast spin echo may be performed. COMPARISON: [facility], CR, L-SPINE 2-3 VIEWS, 02/27/2008, 9:42. [facility], MR, MR LUMBAR SPINE WO/W CON, 04/29/2019, 10:55. FINDINGS: Image quality: Excellent. Alignment and Curvature: 5 lumbar type vertebral bodies by plain film. There is mild, grade 1 retrolisthesis of T12 on L1, L1-L2, and L2 on L3. There is mild grade 1 anterolisthesis of L4 on L5. Bone Marrow: Marrow is of normal overall signal. No acute vertebral body compression fractures. Mild reactive signal within the endplates adjacent to the L1-L2, L2-L3, L3-L4, L4-L5 intervertebral discs are Spinal Cord: Conus medullaris terminates at the L1-L2 disc space level. Visualized cord demonstrates normal signal and size. Paraspinous Soft Tissues: No paravertebral masses. L1-L2: Moderate disc desiccation. Mild disc height loss. Moderate diffuse disc bulge. Mild facet and ligamentum flavum hypertrophy. Moderate canal stenosis. Moderate bilateral foraminal stenosis. No change. L2-L3: Moderate disc desiccation. Mild disc height loss. Mild diffuse disc bulge. Mild facet and ligamentum flavum hypertrophy. Mild epidural lipomatosis. Moderate canal stenosis. Moderate left and mild right foraminal stenosis. No change. L3-L4: Moderate disc height loss and desiccation. Mild diffuse disc bulge. Mild facet and ligamentum flavum hypertrophy bilaterally. Severe canal stenosis. Moderate bilateral foraminal stenosis. No change. L4-L5: Moderate disc height loss and desiccation. Mild diffuse disc bulge. Moderate bilateral facet hypertrophy. Mild epidural lipomatosis. Moderate to severe canal stenosis. Moderate bilateral foraminal stenosis. No change. L5-S1: Moderate disc desiccation. Mild disc height loss. Mild diffuse disc bulge. Mild bilateral facet hypertrophy. Mild canal stenosis. Mild bilateral foraminal stenosis. No change. Moderate deep tendon edema within the posterior subcutaneous fat. IMPRESSION: No significant change compared to 04.29.19. 1. No acute/emergent process. 2. Multilevel degenerative disc and facet disease, as well as ligamentum flavum hypertrophy and epidural lipomatosis. 3. Multilevel canal and foraminal stenoses as described above. Dictated by: Robin Chaudhry M.D. on 07/11/2019 at 20:54 Approved by: Robin Chaudhry M.D. on 07/11/2019 at 21:00 Discharge Plan Departure Patient Disposition: Admitted As Inpatient Clinical Impression: Encephalopathy, hypertensive, Acute UTI, Lumbar back pain Discharge Date/Time: 07/12/19 01:38 Admit Date/Time: 07/12/19 00:56 Admit Provider: Kevin Dooley
--- NOTE | 2019-07-11 16:15 | DI.RAD.S_ITS ---
PROCEDURE: XR CHEST 1V INDICATIONS: suspected sepsis TECHNIQUE: One view of the chest was acquired. COMPARISON: [facility], CR, XR CHEST 2V, 02/05/2019, 9:50. FINDINGS: Surgical changes and devices: None. Lungs and pleura: New, mild diffuse reticulonodular pulmonary opacities present.. No pleural effusions or pneumothorax. Mediastinum: Mediastinal contours appear normal. Heart size is normal. Bones and chest wall: No suspicious bony lesions. Overlying soft tissues appear unremarkable. IMPRESSION: Mild atypical pneumonia. Dictated by: Robin Chaudhry M.D. on 07/11/2019 at 17:29 Approved by: Robin Chaudhry M.D. on 07/11/2019 at 17:30
[2019-07-11 16:24] LABS: INR 1.2 (0.9-1.3); Prothrombin Time 13.7 SECONDS (10.1-12.7)
[2019-07-11 16:28] LABS: PTT Partial Thromboplastin Tim 37 SECONDS (26.4-36.2)
[2019-07-11 16:30] LABS: Alanine Aminotransferase 15 IU/L (<35); Albumin 4.8 g/dL (3.5-5.0); Albumin Globulin Ratio 1.3 (1.0-2.8); Alkaline Phosphatase 70 U/L (38-126); Aspartate Aminotransferase 40 IU/L (14-36); BUN Creatinine Ratio 19.1 (6-22); Bilirubin Total 1.4 mg/dL (0.2-1.3); Blood Urea Nitrogen 21 mg/dL (7-17); Calcium 9.6 mg/dL (8.4-10.2); Carbon Dioxide 24 mmol/L (22-32); Chloride 102 mmol/L (98-107); Estimated Glomerular Filt Rate 47.3 mL/min (>60); Globulin 3.6 g/dL (1.7-4.1); Glucose 145 mg/dL (80-110); HEMOLYSIS 46 (0-50); Lipase 28 U/L (23-300); Potassium 3.5 mmol/L (3.4-5.1); Sodium 140 mmol/L (137-145); Total Protein 8.4 g/dL (6.3-8.2)
[2019-07-11 17:02] LABS: Add Manual Diff / Slide Review NO; Basophils Absolute Auto 100 /uL (0-100); Basophils Percent Auto 0.4 % (0-2); Eosinophils Absolute Auto 0 /uL (0-450); Eosinophils Percent Auto 0.3 % (2-4); Hematocrit 56.2 % (36-46); Hemoglobin 18.8 g/dL (12.0-16.0); Lymphocytes Absolute Auto 1400 /uL (1100-4500); Lymphocytes Percent Auto 10.9 % (25-40); Mean Corpuscular HGB Conc 33.5 % (30-36); Mean Corpuscular Hemoglobin 31.5 PG (26-34); Mean Corpuscular Volume 94.1 fL (80-100); Monocytes Absolute Auto 3800 /uL (0-900); Monocytes Percent Auto 29.2 % (3-14); Neutrophils Absolute Auto 7700 /uL (1500-7000); Neutrophils Percent Auto 59.2 % (50-75); Platelet Count 386 X10^3/uL (150-400); Red Blood Cell Count 5.97 X10^6/uL (4.0-5.2); Red Cell Distribution Width 16.7 % (11.6-14.8)
[2019-07-11 17:03] LABS: Lactate (Lactic Acid) 1.1 mmol/L (0.7-2.1)
[2019-07-11 17:05] LABS: Procalcitonin < 0.05 ng/mL (<0.5)
[2019-07-11 17:22] LABS: Appearance Urine UA CLOUDY; Bilirubin Urine UA 1+ (NEGATIVE); Glucose Urine UA NEGATIVE (Negative); Ketones Urine UA 1+ (NEGATIVE); Leukocyte Esterase Urine UA 1+ (NEGATIVE); Nitrite Urine UA NEGATIVE (Negative); Occult Blood Urine UA TRACE-LYSED (Negative); Protein Urine UA 3+ (Negative); Specific Gravity Urine UA >=1.030 (1.000-1.035); Urobilinogen Urine UA 0.2 E.U./dL (0.2)
[2019-07-11 17:29] LABS: Color Urine UA Dark Yellow; pH Urine UA 5.5 (4.5-8.0)
[2019-07-11 17:30] LABS: Amorphous Sediment Urine 1+; Bacteria Urine Many (>30); Mucus Urine 2+ (Negative); RBC Urine 0-1/HPF (0-5/HPF); Squamous Epithelial Cell Urine 1-5 /HPF (0-5/HPF); WBC Urine 10-30/HPF (0-5/HPF)
[2019-07-11 17:32] LABS: Culture Indicated Urine Specimen Cultured; Ictotest Urine Negative (Negative)
--- NOTE | 2019-07-11 17:47 | DI.CT.S_ITS ---
PROCEDURE: CT HEAD/BRAIN WO CON INDICATIONS: altered mental status TECHNIQUE: Noncontrast 4.5 mm thick angled axial sections acquired from the foramen magnum to the vertex, with coronal and sagittal reformats. For radiation dose reduction, the following was used: automated exposure control, adjustment of mA and/or kV according to patient size. COMPARISON: None. FINDINGS: Image quality: Excellent. CSF spaces: Basal cisterns are patent. No extra-axial fluid collections. The ventricles are symmetric in size and shape. Brain: No intracranial bleeds or masses. There is cerebral volume loss for age, with resultant ventricular and sulcal prominence. There are periventricular and deep white matter chronic small vessel ischemic changes. There is intracranial internal carotid artery atherosclerosis. Skull and face: Calvarium and visualized facial bones appear intact, without suspicious lesions. Sinuses: Moderate mucosal thickening within the sphenoid sinus. Visualized sinuses and mastoids are otherwise clear. IMPRESSION: No acute intracranial abnormality. Dictated by: Robin Chaudhry M.D. on 07/11/2019 at 18:49 Approved by: Robin Chaudhry M.D. on 07/11/2019 at 18:50
[2019-07-11] MEDS: LABETALOL 20 MG/4 ML SYRINGE 10 MG IV (17:56)
[2019-07-11] MEDS: ESMOLOL 2.5 GM/250 ML IV.SOLN IV (19:04)
--- NOTE | 2019-07-11 19:39 | DI.US.S_ITS ---
PROCEDURE: US PERIPH VENOUS UP EXTREM LT INDICATIONS: PAIN,SWELLING,DISCOLORATION TECHNIQUE: Real-time imaging, as well as color and pulse Doppler interrogation, was performed of the left upper extremity deep veins from the inferior neck to the antecubital fossa. COMPARISON: None. FINDINGS: The internal jugular vein, visualized portions of the subclavian vein, axillary, and brachial veins are free of intraluminal thrombus. Where physically possible, the veins are normally compressible. Color and pulse Doppler demonstrate normal intraluminal flow, with expected phasicity and pulsatility. Additional scanning of the cephalic and basilic veins of the superficial system demonstrate normal compressibility, without thrombus. IMPRESSION: No deep vein thrombosis of the left upper extremity. Dictated by: Shayla Dunham M.D. on 07/12/2019 at 7:28 Approved by: Shayla Dunham M.D. on 07/12/2019 at 7:29
--- NOTE | 2019-07-11 19:41 | DI.MRI.S_ITS ---
PROCEDURE: MR LUMBAR SPINE WO CON INDICATIONS: pain in back, B/L LE weakness, pain, numbness TECHNIQUE: Noncontrast sagittal T1 spin echo and T2 fast echo, sagittal STIR, axial T1 and T2 fast spin echo through the lumbar spine. In cases with scoliosis, additional coronal T2 fast spin echo may be performed. COMPARISON: [facility], CR, L-SPINE 2-3 VIEWS, 02/27/2008, 9:42. [facility], MR, MR LUMBAR SPINE WO/W CON, 04/29/2019, 10:55. FINDINGS: Image quality: Excellent. Alignment and Curvature: 5 lumbar type vertebral bodies by plain film. There is mild, grade 1 retrolisthesis of T12 on L1, L1-L2, and L2 on L3. There is mild grade 1 anterolisthesis of L4 on L5. Bone Marrow: Marrow is of normal overall signal. No acute vertebral body compression fractures. Mild reactive signal within the endplates adjacent to the L1-L2, L2-L3, L3-L4, L4-L5 intervertebral discs are Spinal Cord: Conus medullaris terminates at the L1-L2 disc space level. Visualized cord demonstrates normal signal and size. Paraspinous Soft Tissues: No paravertebral masses. L1-L2: Moderate disc desiccation. Mild disc height loss. Moderate diffuse disc bulge. Mild facet and ligamentum flavum hypertrophy. Moderate canal stenosis. Moderate bilateral foraminal stenosis. No change. L2-L3: Moderate disc desiccation. Mild disc height loss. Mild diffuse disc bulge. Mild facet and ligamentum flavum hypertrophy. Mild epidural lipomatosis. Moderate canal stenosis. Moderate left and mild right foraminal stenosis. No change. L3-L4: Moderate disc height loss and desiccation. Mild diffuse disc bulge. Mild facet and ligamentum flavum hypertrophy bilaterally. Severe canal stenosis. Moderate bilateral foraminal stenosis. No change. L4-L5: Moderate disc height loss and desiccation. Mild diffuse disc bulge. Moderate bilateral facet hypertrophy. Mild epidural lipomatosis. Moderate to severe canal stenosis. Moderate bilateral foraminal stenosis. No change. L5-S1: Moderate disc desiccation. Mild disc height loss. Mild diffuse disc bulge. Mild bilateral facet hypertrophy. Mild canal stenosis. Mild bilateral foraminal stenosis. No change. Moderate deep tendon edema within the posterior subcutaneous fat. IMPRESSION: No significant change compared to 04.29.19. 1. No acute/emergent process. 2. Multilevel degenerative disc and facet disease, as well as ligamentum flavum hypertrophy and epidural lipomatosis. 3. Multilevel canal and foraminal stenoses as described above. Dictated by: Robin Chaudhry M.D. on 07/11/2019 at 20:54 Approved by: Robin Chaudhry M.D. on 07/11/2019 at 21:00
[2019-07-11] MEDS: NITROGLYCERIN 0.4 MG SL TAB SL (20:05)
[2019-07-11] MEDS: NITROGLYCERIN OINT 1 INCH/GM OINT...G. 0.5 INCH TOP (21:12)
[2019-07-11] MEDS: HYDRALAZINE 20 MG/ML VIAL 10 MG IV (23:46)
[2019-07-12] VITALS (15 sets, daily range): BP systolic 143–192; BP diastolic 66–123; PULSE 82–100; RESP 16–24; TEMP 36.3–36.9; O2SAT 92–99; BMI 27.6
--- NOTE | 2019-07-12 00:30 | PC.NURSE ---
previous nurse gave labetalol with no response, then hung esmolol with no response. Gave one SL nitro with a small reduction in bp to 190/90. Provider notified and ordered 1/2 in nitro paste. Initially nitro paste reduced BP however bp resumed previous levels of 220\110. Provider notified and ordered hydralazine. BP stabalized at 180s\80s
[2019-07-12] MEDS: CEFTRIAXONE 1 GM/50 ML FROZ.PIGGY IV (00:45)
--- NOTE | 2019-07-12 02:43 | PC.ADMIT ---
[address] Admission Note: The patient,Re Goff,84 y/o, was given written information regarding hospital policies, unit procedures and contact persons. Patient's smoking status: Former smoker. Vital Signs - 8 hr 07/11/19 20:05 07/11/19 21:12 07/11/19 21:13 Temperature Pulse Rate 88 91 H 91 H Respiratory Rate 15 Blood Pressure 225/105 H 221/116 H Blood Pressure [Left Arm] 210/116 H Pulse Oximetry 94 07/11/19 22:55 07/11/19 23:46 07/12/19 00:30 Temperature Pulse Rate 91 H 92 H 99 H Respiratory Rate 14 Blood Pressure 201/100 H Blood Pressure [Left Arm] 200/116 H 186/86 H Pulse Oximetry 07/12/19 01:38 07/12/19 01:40 07/12/19 02:27 Temperature 98.0 F Pulse Rate 84 98 H 100 H Respiratory Rate 24 16 Blood Pressure 186/88 H 189/123 H 189/123 H Blood Pressure [Left Arm] Pulse Oximetry 99 92 Patient arrived via bed accompanied by ED DOUGH RAISER and daughter, transferred to inpatient bed via slider board. At base line patient uses cane or walker but has had profound weakness at home and has been chair bound for several days, was unable to assist in her own transfer or log roll to remove linens. Blood pressure at arrival was elevated, RECREATION ATTENDANT notified immediately during admission of increased BP. Daughter reports that patient has had frequent falls that patient denies, also reports that patient has been experiencing visual hallucinations and has short term memory loss. Patient able to answer all orientation questions correctly but does need frequent reminders of information that had recently been given to her. Patient is [place] and uses hearing aids at baseline but have been misplaced at home and currently without them, also uses glasses at baseline and present with patient. Lung sounds clear in all romo, heart rate regular but bounding and tachy. Patient has healing abrasion to inner left knee and blanching to left foot bunion, tops of toes and right buttocks. Patient having left arm/shoulder pain that results in the patient leaning to her right. Patient is high fall risk, bed alarm on and functioning, call light in reach and given education on use but possible patient will not call appropriately, at this time do not believe that patient will attempt to exit the bed.
--- NOTE | 2019-07-12 03:07 | PM.HP.1 ---
History of Present Illness History of Present Illness Date Patient Seen: 07/12/19 Time Patient Seen: 03:07 Chief complaint: Back pain Narrative: Ms. Re Goff is an 84-year-old female with a medical history significant for hypertension, hyperlipidemia, hard of hearing and chronic back pain who presents to the ER brought in by her daughter for increased confusion and weakness. The patient is a difficult historian. The daughter states that this is an acute change that the BP woke up altered this morning. Per the patient she has had progressive weakness and immobility for last 2-3 weeks to the point now she states she cannot get up. Prior to that the patient was able to walk with a cane albeit with difficulty. The patient has chronic back pain with bilateral lower extremity weakness pain and numbness. The patient denies complaints of fevers or chills headaches or dizziness. She denies sore throat or nasal congestion. She denies chest pain or palpitations. She reports no complaints of shortness of breath cough. She denies complaints of abdominal pain or heartburn. She reports feeling somewhat queasy. She reports no changes in bowel or bladder habits and denies urgency frequency or burning on urination. Upon arrival to the ER the patient has temperature of 98.3?, heart rate 96, blood pressure 214/119. Respirations are 20 saturating 99% on room air. Twelve lead EKG is obtained which finds is a sinus rhythm a ventricular rate of 94, right bundle branch block and left anterior fascicular block with left ventricular hypertrophy and left [place] axis. No evidence of ST or T-wave changes indicative of ischemia. A chest x-ray is obtained finding mild atypical pneumonia. Head CT is obtained which finds no acute intracranial pathology. A lumbar MRI is obtained due to patient complained of severe back pain which finds multilevel degenerative disc disease with foraminal and spinal stenosis. On laboratory analysis patient has an elevated white count at 13 an elevated hemoglobin 18.8 and hematocrit of 56.2 and platelets of 380. She has a PT of 13.7, INR of 1.2, PTT of 37. Her electrolytes are within normal limits with a BUN of 21 and creatinine 1.1 and a nonfasting glucose of 145. She has elevated bilirubin at 1.4, AST of 40, ALT of 15 and alkaline phosphatase is 70. On urinalysis she is noted to have concentrated urine with a specific gravity of 1.030, dark and yellow in color with sediment, 1+ ketones and positive for leukocyte esterase WBCs and many bacteria. While in the ER the patient presented with persistent severe hypertension up to 232/106. During those times the patient would complain of increasing back pain and headache. The patient received nitroglycerin sublingual, nitroglycerin paste, labetalol and hydralazine to obtain a modest reduction in blood pressure to the 180 systolic. The patient is admitted to the medicine service for altered mental status with urinary tract infection, atypical pneumonia and severe hypertension. Patient History Medical History (Updated 07/12/19 @ 09:13 by ALMA Helm) Hard of hearing (Acute) HTN (hypertension) (Acute) Hyperlipidemia (Acute) Lumbar back pain (Inactive) Surgical History (Updated 07/12/19 @ 09:13 by ALMA Helm) History of bilateral total hip arthroplasty (Acute) History of cholecystectomy (Acute) Family & Social History Family History (Updated 07/12/19 @ 09:14 by ALMA Helm) Father Cancer Mother Heart disease Brother Diabetes mellitus Social History: household members none Prior Living Arrangements House Safety & Behavioral: Feels Safe in Current Yes Environment Been Physically Hurt or No Threatened By a Person Suicidal Ideation Description None Suicide Plan Description No Plan Tobacco & Substance use: Smoking Status Former smoker alcohol intake frequency 0-2 drinks per day Substance Use Type does not use Comment: The patient lives alone with her pets in a single family home. She states her father from stomach cancer and her mother from heart disease. She has 1 brother who has diabetes and a sister who's from unknown causes. Smoking: The patient states she quit smoking 30 years ago before which she smoked 1 pack per day. Alcohol: The patient endorses consuming 1-2 glasses of wine daily Substance use: The patient denies use of recreational pharmaceuticals herbal or cannabis products. Advanced directives: The patient states her desire to be FULL CODE. She designates her daughter's Ara or Rubi to be her surrogate decision makers. Meds Home Medications and Allergies Home Medications Medication Instructions Recorded Confirmed Type losartan 50 mg PO BID #0 07/30/12 07/11/19 History carvedilol 25 mg PO BID 04/29/19 07/11/19 History diphenhydramine HCl [Sleep Aid 25 mg PO BEDTIME PRN 04/29/19 07/11/19 History (diphenhydramine)] lovastatin 40 mg PO QPM 04/29/19 07/11/19 History solifenacin 5 mg PO DAILY 04/29/19 07/11/19 History spironolactone 25 mg PO 3XW 04/29/19 07/11/19 History methocarbamol 750 mg PO PRN PRN 07/12/19 07/12/19 History Allergies Allergy/AdvReac Type Severity Reaction Status Date / Time amlodipine Allergy Verified 04/29/19 09:33 lisinopril Allergy Verified 04/29/19 09:33 nifedipine Allergy Verified 04/29/19 09:33 spironolactone Allergy Verified 04/29/19 09:33 Review of Systems Review of Systems ROS: Yes All systems reviewed with the patient and are negative except as otherwise documented Exam Vital Signs (past 8 hours): - 07/11/19 20:05 07/11/19 21:12 07/11/19 21:13 Temperature Pulse Rate 88 91 H 91 H Respiratory Rate 15 Blood Pressure 225/105 H 221/116 H Blood Pressure [Left Arm] 210/116 H Pulse Oximetry 94 07/11/19 22:55 07/11/19 23:46 07/12/19 00:30 Temperature Pulse Rate 91 H 92 H 99 H Respiratory Rate 14 Blood Pressure 201/100 H Blood Pressure [Left Arm] 200/116 H 186/86 H Pulse Oximetry 07/12/19 01:38 07/12/19 01:40 07/12/19 02:27 Temperature 98.0 F Pulse Rate 84 98 H 100 H Respiratory Rate 24 16 Blood Pressure 186/88 H 189/123 H 189/123 H Blood Pressure [Left Arm] Pulse Oximetry 99 92 Oxygen Delivery Method Room Air Oxygen Flow Rate 0 Narrative Exam Narrative: GENERAL APPEARANCE: well developed, well nourished, lying supine in bed in no acute distress. HEENT: Normocephalic, PERRLA, conjunctiva clear, sclera anicteric, no sinus tenderness to percussion, no rhinorrhea, oral mucosa pink and dry NECK/THYROID: neck supple, no jugular venous distention, no carotid bruit, no thyromegaly, trachea midline. LYMPH NODES: no cervical or supraclavicular lymphadenopathy. SKIN: warm and dry, no suspicious lesions, no rashes. HEART: regular rate and rhythm, S1-S2 without murmur, no rubs or gallops, brisk capillary refill, no edema LUNGS: Patient with central coarseness, no cackles or wheezing, dry cough present CHEST: Symmetrical movement, no accessory muscle use, shall of tidal volume ABDOMEN: Soft, round, no distention, no abdominal tenderness on palpation, no guarding or peritoneal signs, no organomegaly, no flank or suprapubic tenderness, active bowel tones. EXTREMITIES: moves all extremities, strength is 4/5 and symmetrical, no deformities or joint effusions. NEUROLOGIC: AAO to person place only, no focal neurologic deficits, sensation intact to light touch, impaired hearing PSYCH: Poor eye contact, tangental thought, cooperative, stable behavior. Objective Labs Result Diagrams: 07/11/19 15:38 07/12/19 08:35 Labs: Laboratory Results - last 24 hr 07/11/19 07/11/19 07/11/19 15:38 15:38 15:38 WBC 13.0 H RBC 5.97 H Hgb 18.8 H Hct 56.2 H MCV 94.1 MCH 31.5 MCHC 33.5 RDW 16.7 H Plt Count 386 Neut % (Auto) 59.2 Lymph % (Auto) 10.9 L [place] % (Auto) 29.2 H Eos % (Auto) 0.3 L Baso % (Auto) 0.4 Neut # (Auto) 7700 H Lymph # (Auto) 1400 [place] # (Auto) 3800 H Eos # (Auto) 0 Baso # (Auto) 100 PT 13.7 H INR 1.2 APTT 37 H Sodium Potassium Chloride Carbon Dioxide BUN Creatinine Estimated GFR BUN/Creatinine Ratio Glucose Lactate Calcium Total Bilirubin AST ALT Alkaline Phosphatase Total Protein Albumin Globulin Albumin/Globulin Ratio Lipase Procalcitonin < 0.05 Urine Color Urine Appearance Urine pH Ur Specific [place] Urine Protein Urine Glucose (UA) Urine Ketones Urine Occult Blood Urine Nitrate Urine Bilirubin Ur Bilirubin Confirm Urine Urobilinogen Ur Leukocyte Esterase Urine RBC Urine WBC Ur Squamous Epith Cells Amorphous Sediment Urine Bacteria Urine Mucus Ur Culture Indicated? 07/11/19 07/11/19 07/11/19 15:38 16:30 16:37 WBC RBC Hgb Hct MCV MCH MCHC RDW Plt Count Neut % (Auto) Lymph % (Auto) [place] % (Auto) Eos % (Auto) Baso % (Auto) Neut # (Auto) Lymph # (Auto) [place] # (Auto) Eos # (Auto) Baso # (Auto) PT INR APTT Sodium 140 Potassium 3.5 Chloride 102 Carbon Dioxide 24 BUN 21 H Creatinine 1.10 H Estimated GFR 47.3 L BUN/Creatinine Ratio 19.1 Glucose 145 H Lactate 1.1 Calcium 9.6 Total Bilirubin 1.4 H AST 40 H ALT 15 Alkaline Phosphatase 70 Total Protein 8.4 H Albumin 4.8 Globulin 3.6 Albumin/Globulin Ratio 1.3 Lipase 28 Procalcitonin Urine Color Dark yellow Urine Appearance Cloudy Urine pH 5.5 Ur Specific [place] >=1.030 H Urine Protein 3+ H Urine Glucose (UA) Negative Urine Ketones 1+ H Urine Occult Blood Trace-lysed Urine Nitrate Negative Urine Bilirubin 1+ H Ur Bilirubin Confirm Negative Urine Urobilinogen 0.2 Ur Leukocyte Esterase 1+ H Urine RBC 0-1/hpf Urine WBC 10-30/hpf H Ur Squamous Epith Cells 1-5 /hpf Amorphous Sediment 1+ Urine Bacteria Many (>30) H Urine Mucus 2+ H Ur Culture Indicated? Specimen cultured Assessment & Plan Assessment & Plan narrative: This is an 84-year-old female patient who's admitted to the hospital for altered mental status, metabolic encephalopathy related to severe hypertension with findings of atypical pneumonia and UTI. 1. Metabolic encephalopathy, multifactorial, present on admission, active -The patient is brought in by her daughter states the patient is acutely confused today, patient reports she she is here due to back pain and weakness. -Patient is oriented to person and place only confused as to date and time. -CT of the head is unremarkable for intracranial pathology. -Cause is multifactorial including: Hypertensive encephalopathy, blood pressure is up to 230s over 110s. Urinary tract infection with leukocyte esterase, WBCs and many bacteria reflex to culture. Atypical pneumonia finding on x-ray Acute dehydration, patient hemoconcentrated with a hemoglobin of 18.8 hematocrit of 56.2, urine specific gravity is 1.030 with sediment, dark yellow in color with 1+ ketones. 2. Hypertensive encephalopathy, present on admission, active -Patient with known history of hypertension taking carvedilol and losartan. -patient presents to the ER with a blood pressure of 214/119 elevating up into the 230 systolic. -Patient received multiple medications in the ER including nitro sublingual and nitro paste, labetalol IV and hydralazine with improvement of blood pressure to 180 systolic. -Ordered labetalol 10 mg IV as needed every 4 hours as needed for systolic blood pressure greater than 190 or diastolic greater than 110. -Order hydralazine 10 mg IV every 6 hours as needed for blood pressure greater than 200. -Will gently rehydrate the patient with normal saline 100 cc/hour. -Will closely monitor blood pressure. 3. Acute lower urinary tract infection, present on admission, active -Urinalysis reveals leukocyte esterase WBCs and many bacteria. -Patient started on ceftriaxone 1 g IV in the ED is and continued 1 g daily. -Will follow infection markers. 4. Acute atypical pneumonia, present on admission, active. -Atypical pneumonia noted on chest x-ray. -Patient with elevated white count at 13 0.0 -Patient is started on ceftriaxone 1 g IV in the ED and continue 1 g daily. -Will follow infection markers. 5. Acute dehydration, present on admission, active -The patient presents clinically dehydrated with dry oral mucous membranes, hemoconcentrated with a hemoglobin of 18.8, hematocrit of 56.2, BUN creatinine ratio was 20. -Will rehydrate patient with normal saline 100 cc/hour. -Strict I&Os -Will follow chemistries and blood counts. VTE prophylaxis: SCDs, Lovenox IVF: Normal saline 100 cc/hour Diet: Heart healthy.. The patient is admitted to the hospital due to metabolic encephalopathy that is multifactorial aunts severe hypertension requiring monitoring and intervention. The patient is admitted as an inpatient with expected length of stay to be greater than 2 midnights.
[2019-07-12 03:46] LABS: Magnesium 1.8 mg/dL (1.6-2.3)
[2019-07-12] MEDS: SODIUM CHLORIDE 0.9% 1,000 ML 100 ML IV (03:47)
[2019-07-12] MEDS: AZITHROMYCIN 500 MG in DEXTROSE 5% IN WATER 250 ML IV (03:57)
[2019-07-12 08:57] LABS: Blood Urea Nitrogen 22 mg/dL (7-17); Calcium 8.8 mg/dL (8.4-10.2); Carbon Dioxide 21 mmol/L (22-32); Chloride 105 mmol/L (98-107); Estimated Glomerular Filt Rate 52.8 mL/min (>60); Glucose 146 mg/dL (80-110); HEMOLYSIS 20 (0-50); Potassium 3.3 mmol/L (3.4-5.1); Sodium 137 mmol/L (137-145)
[2019-07-12] MEDS: ENOXAPARIN 40 MG/0.4 ML SYRINGE SUBCUT (10:45)
[2019-07-12] MEDS: ACETAMINOPHEN 325 MG TABLET 650 MG PO ×2 (10:46→23:57)
[2019-07-12 12:25] LABS: Basophils Absolute Auto 0 /uL (0-100); Basophils Percent Auto 0.3 % (0-2); Eosinophils Absolute Auto 0 /uL (0-450); Eosinophils Percent Auto 0.1 % (2-4); Hematocrit 50.8 % (36-46); Hemoglobin 16.9 g/dL (12.0-16.0); Lymphocytes Absolute Auto 1200 /uL (1100-4500); Lymphocytes Percent Auto 9.1 % (25-40); Mean Corpuscular HGB Conc 33.3 % (30-36); Mean Corpuscular Hemoglobin 31.1 PG (26-34); Mean Corpuscular Volume 93.5 fL (80-100); Monocytes Absolute Auto 3700 /uL (0-900); Monocytes Percent Auto 28.4 % (3-14); Neutrophils Absolute Auto 8100 /uL (1500-7000); Neutrophils Percent Auto 62.1 % (50-75); Platelet Count 363 X10^3/uL (150-400); Red Blood Cell Count 5.43 X10^6/uL (4.0-5.2); Red Cell Distribution Width 16.3 % (11.6-14.8)
[2019-07-12 12:26] LABS: Add Manual Diff / Slide Review SLIDE REVIEW
--- NOTE | 2019-07-12 12:45 | PT.IIE ---
Current Diagnoses Metabolic encephalopathy (07/12/19) Surgical History (Last Updated 07/12/19 @ 09:13 by ALMA Helm) History of bilateral total hip arthroplasty (Acute) History of cholecystectomy (Acute) Medical History (Last Updated 07/12/19 @ 09:13 by ALMA Helm) Hard of hearing (Acute) HTN (hypertension) (Acute) Hyperlipidemia (Acute) Lumbar back pain (Inactive) Physical Therapy Inpatient Evaluation/Re-Eval M1 PT/OT-IP Prior Functional Status Start: 07/12/19 13:23 Freq: NEEDED Status: Active Protocol: Document 07/12/19 13:24 CGR (Rec: 07/12/19 13:55 CGR [email or web address]) Medical Review Prior Functional Status Communication Pt is an effective verbal communicator. Mobility and Gait Pt states that she uses a cane for most mobility but occasionally goes without the cane in the house. Activities of Daily Living and IADL's Pt states she is IND in all ADLs and IADLs without the use of equipment. Social History Household Members none Living Arrangements House Number of Floors (Floors) One Floor Number of Stairs To Enter/Railing? Pt states that she has no steps to enter. Home Environment High Toilet,Walk in Shower Home Equipment Front Wheel Walker,Straight Cane,Hand Held Shower Employment Status Retired M1 PT/OT-IP Prior Functional Status Start: 07/12/19 14:30 Freq: NEEDED Status: Active Protocol: Document 07/12/19 12:45 AB (Rec: 07/12/19 14:44 AB [id number]) Medical Review Prior Functional Status Medical History Reviewed Yes Communication able to make needs known but with confusion Mobility and Gait pt stated that she is modified independent with all mobilities and ambulation usually using a SPC but occasionally without AD depending on how far and where she has to go. Activities of Daily Living and IADL's per OT's note: Pt states she is IND in all ADLs and IADLs without the use of equipment. Social History Household Members none Living Arrangements House Number of Floors (Floors) One Floor Number of Stairs To Enter/Railing? Pt states that she has no steps to enter. Home Environment High Toilet,Walk in Shower Home Equipment Front Wheel Walker,Straight Cane,Hand Held Shower Employment Status Retired M2 PT-IP Current Condition Start: 07/12/19 14:30 Freq: NEEDED Status: Active Protocol: Document 07/12/19 12:45 AB (Rec: 07/12/19 14:44 AB [id number]) Physical Therapy Current Condition Current Condition Evaluation Date 07/12/19 Treatment Diagnosis UTI; difficulty in walking Onset Date 07/12/2019 Precautions Other Precautions falls M3 PT-IP Subjective Start: 07/12/19 14:30 Freq: NEEDED Status: Active Protocol: Document 07/12/19 12:45 AB (Rec: 07/12/19 14:44 AB [id number]) Subjective Physical Therapy Visit Type Type Initial Evaluation Visit Start Time 12:45 Visit Stop Time 13:20 Total Visit Minutes 35 Number of ELECTROMECHANICAL TECHNOLOGIST Visits 0 Physical Therapy Visit Comments Patient Comments pt agreeable to do PT Therapy Pain Assessment Pain Present Pain Present Denied Pain M4 PT-IP Mobility and Gait Start: 07/12/19 14:30 Freq: NEEDED Status: Active Protocol: Document 07/12/19 12:45 AB (Rec: 07/12/19 14:44 AB [id number]) PT-Bed Mobility Assessment Supine to Sit Supine to Sit Maximum Assistance,1 Person Assistance,2 Person Assistance PT-Transfer Assessment Sit to and From Stand Sit to and from Stand Moderate Assistance,Maximum Assistance,1 Person Assistance ,Use of Upper Extremities Equipment Transfer Assistive Device Gait Belt,Front Wheeled Walker Orthotic/Prosthetic Devices or Brace: No Transfers Transfer Destination Toilet Transfer Technique ambulated using FWW Transfer Ability Level of Assist Moderate Assistance,Maximum Assistance,1 Person Assistance ,Use of Upper Extremities Comments Mobility Comments pt with OT. pt with increase posterior trunk leaning during sitting on EOB and requires cues for posture and positioning. required max A to scoot to EOB. pt completed sit to stand from EOB mod to max A and max cues and ambulated using FWW to the toilet. required assist with weight shifting and steadiness especially with turning. required mod A for controlled descent to the toilet. completed sit to stand from the toilet min A to mod A using grab bar and ambulated using FWW to the chair mod to max A and max cues. positioned pt on the chair. call light and table placed within reach. Gait Assessment Gait Gait Assistance Required: Moderate Assistance,Maximum Assistance,1 Person Assist Distance (Feet) 12 Able to Maintain Weight Bearing Status Yes During Gait Assistive Devices Assistive Device Gait Belt,Front Wheeled Walker Orthotic/Prosthetic Devices or Brace: No Gait Deviations General Gait Pattern Antalgic,Decreased Stride Length,Decreased Feet Clearance,Flexed Trunk,Step-to Gait Factors Limiting Gait Function Factors Limiting Gait Function Decreased Activity Tolerance, Decreased Sensation,Decreased Strength,Difficulty Following Directions,Incoordination, Limited Range of Motion,Poor Balance,Poor Safety Awareness Comments Gait Comments pls refer to mobility section for details. pt tends to push FWW too far forward and requires cues for stability and techniques for safety PT-Balance Assessment Sitting Balance and Reactions Static Sitting Balance Ability Fair Dynamic Sitting Balance Ability Poor Standing Balance and Reactions Static Standing Balance Ability Poor Dynamic Standing Balance Ability Poor Device Used FWW M5 PT-IP Objective Assessments Start: 07/12/19 14:30 Freq: NEEDED Status: Active Protocol: Document 07/12/19 12:45 AB (Rec: 07/12/19 14:44 AB [id number]) Orientation Orientation/Cognition Level of Alertness Confusional State Orientation Name,Place,Situation Language Function Ability Hard of Hearing Safety Awareness Decreased Safety Awareness Memory Description Short Term Impaired,[place] Impaired Gross Range of Motion Lower Extremity ROM Assessment Within Functional Limits Strength Lower Extremity Strength Hip 4-/5 Knee 4-/5 Sensation Assessment Sensation Gross Sensation WNL Muscle Tone Muscle Tone WNL Yes M6 PT-IP Treatment Start: 07/12/19 14:30 Freq: NEEDED Status: Active Protocol: Document 07/12/19 12:45 AB (Rec: 07/12/19 14:44 AB [id number]) Physical Therapy Treatment Education Education Provided Safety M7 PT-IP Assessment and Plan Start: 07/12/19 14:30 Freq: NEEDED Status: Active Protocol: Document 07/12/19 12:45 AB (Rec: 07/12/19 14:44 AB [id number]) PT Summary Assessment and Plan Potential Rehabilitation Potential Fair Status of Condition at Evaluation Evolving Summary Impairments Pain,ROM,Strength,Balance, Coordination,Sensation,Tone, Cognition,Bed Mobility, Transfers,Gait,Activity Tolerance Assessment Summary pt required mod to max A with mobility using FWW and max cues with all tasks and has decrease safety awareness and will require SNF rehab to improve strength and mobility. Goals Bed Mobility Goal Contact Guard Assistance Transfer Goal Contact Guard Assistance,Front Wheeled Walker Gait Goal Contact Guard Assistance,Front Wheel Walker Gait Distance 100 Days to Meet Goals 10 Frequency of Treatment Frequency Of Treatment Once a Day Treatment Plan Physical Therapy Treatment Plan Bed Mobility Training,Transfer Training,Gait Training, Therapeutic Exercise,Balance Retraining,Discharge Planning, Hot or Cold Pack,Neuromuscular Re-ed,Coordination Retraining Recommendations To Nursing Amount of Assist Needed 2 Person Assist Discharge Recommendations PT Discharge Recommendations SNF Rehab Transportation Needs at Discharge Private Vehicle,Wheelchair/ Cabulance
--- NOTE | 2019-07-12 13:20 | OT.IP.EVAL ---
Current Diagnoses Metabolic encephalopathy (07/12/19) Past Medical History (Last Updated 07/12/19 @ 09:13 by ALMA Helm) Hard of hearing (Acute) HTN (hypertension) (Acute) Hyperlipidemia (Acute) Lumbar back pain (Inactive) Surgical History (Last Updated 07/12/19 @ 09:13 by ALMA Helm) History of bilateral total hip arthroplasty (Acute) History of cholecystectomy (Acute) Occupational Therapy Inpatient Evaluation/Re-Eval M1 PT/OT-IP Prior Functional Status Start: 07/12/19 13:23 Freq: NEEDED Status: Active Protocol: Document 07/12/19 13:24 CGR (Rec: 07/12/19 13:55 CGR [email or web address]) Medical Review Prior Functional Status Communication Pt is an effective verbal communicator. Mobility and Gait Pt states that she uses a cane for most mobility but occasionally goes without the cane in the house. Activities of Daily Living and IADL's Pt states she is IND in all ADLs and IADLs without the use of equipment. Social History Household Members none Living Arrangements House Number of Floors (Floors) One Floor Number of Stairs To Enter/Railing? Pt states that she has no steps to enter. Home Environment High Toilet,Walk in Shower Home Equipment Front Wheel Walker,Straight Cane,Hand Held Shower Employment Status Retired M2 OT-IP Current Condition Start: 07/12/19 13:23 Freq: Status: Active Protocol: Document 07/12/19 13:24 CGR (Rec: 07/12/19 13:55 CGR [email or web address]) Occupational Therapy Current Condition Current Condition Evaluation Date 07/12/19 Treatment Diagnosis Metabolic encephalopathy, HTN, UTI, PNA Diagnosis Onset Date 07/11/19 M3 OT- IP Subjective and Pain Start: 07/12/19 13:23 Freq: Status: Active Protocol: Document 07/12/19 13:24 CGR (Rec: 07/12/19 13:55 CGR [email or web address]) OT- Subjective Occupational Therapy Visit Type Type Initial Evaluation Visit Start Time 12:30 Visit Stop Time 13:20 Total Visit Minutes 50 Notes Parial co-treat with P.T. BP 159/65 supine, 154/83 seated EOB, 143/83 seated in chair after activity. Occupational Therapy Visit Comments Patient Comments I have just been laying around all day. OT Pain Assessment Pain When Pain Assessed At Rest Pain Present Pain Present Denied Pain M4 OT- IP ADL's Start: 07/12/19 13:23 Freq: Status: Active Protocol: Document 07/12/19 13:24 CGR (Rec: 07/12/19 13:55 CGR [email or web address]) OT TOO-Dspd-[place] General Evaluation Self-Feeding Ability Minimal Assistance Areas Needing Assistance Opening Containers Comments OT Self-Feeding Comments Pt finishing lunch when OT entered. Pt unable to open crackers, butter and sugar replacement and requesting assist. OT ADL-Grooming Comments OT Grooming Comments Pt declined. OT ADL-Oral Care Comments Oral Care Comments Pt declined. OT ADL-Dressing General Eval Lower Body Dressing Ability Maximum Assistance Areas Needing Assistance Underpants/Brief,Socks Comments OT Dressing Comments Pt attempted to don socks but unable to reach feet. Assisted with clean brief and socks for max a. OT ADL-Toileting General Evaluation Toileting Ability Maximum Assistance Areas Needing Assistance Manage Clothing Comments OT Toileting Comments Pt ambualted to bathroom and sat on toilet for attempted urination. Pt unable to urinate and returned to chair but needed assist with managing clothing and min a for sit to stand from toielt with VC for use of GB. OT ADL-Bathing Comments OT Bathing Comments Not performed M5 OT- IP IADL's Start: 07/12/19 13:23 Freq: Status: Active Protocol: Document 07/12/19 13:24 CGR (Rec: 07/12/19 13:55 CGR [email or web address]) OT-Instrumental Activities of Daily Living Deficits IADL Deficits Identified Deficits Home Safety Awareness Awareness of Need for Assistance at Home Decreased Awareness Ability to Problem Solve Emergency Unable to Problem Solve Situations M6 OT- IP Functional Cognition Start: 07/12/19 13:23 Freq: Status: Active Protocol: Document 07/12/19 13:24 CGR (Rec: 07/12/19 13:55 CGR [email or web address]) Cognitive Factors Limiting Selfcare Function Cognitive Ability Level of Alertness Alert,Confusional State Patient Orientation Name,Age,Birthday,Month,Date, Year,Day of Week,Place Attention Span Ability Capable of Focused Attention Ability to Follow Commands Able to Follow One Step Commands with Increased Time, Able to Follow One Step Commands with Repetition Cognitive Comments Cognitive Assessment Comments Pt demonstrates signs of encephalopathy, difficulty answering questions or answering the wrong question. Pt may benefit from formal cog assessment if she does not cognitively clear. OT- Vision and Hearing OT- Hearing Assessment OT- Hearing Assessment Hearing Impaired,Use of Hearing Aids OT- Vision Assessment Visual Acuity Glasses All The Time Vision Assessment Comments Pt had difficulty following visually for testing. M7 OT- IP Mobility and Balance Start: 07/12/19 13:23 Freq: Status: Active Protocol: Document 07/12/19 13:24 CGR (Rec: 07/12/19 13:55 CGR [email or web address]) OT- Bed Mobility Assessment Rolling Type of Rolling Roll to Left Level of Assistance Maximum Assistance Supine to Sit Supine to Sit Assist Maximum Assistance Scooting Scooting to Edge of Bed Maximum Assistance,2 Person Assistance OT-Transfer Assessment Sit to and From Stand Sit to and from Stand Moderate Assistance,Maximum Assistance Transfers Transfer Ability Moderate Assistance,Maximum Assistance Technique Transfer Destination Bed,Chair,Toilet Transfer Technique Stand Step Pivot Devices Transfer Assistive Devices Gait Belt,Front Wheeled Walker Comments Mobility Comments Pt able to stand from toilet with min a with significant use of the grab bar. Mod to max a for sit to stand from bed with use of the walker. OT- Gait Assessment Gait Gait Assistance Required: Moderate Assistance,Maximum Assistance Assistive Devices Assistive Device Gait Belt,Front Wheeled Walker OT- Balance Assessment Sitting Balance and Reactions Static Sitting Balance Ability Good Dynamic Sitting Balance Ability Fair M8 OT- IP Objective Assessments Start: 07/12/19 13:23 Freq: Status: Active Protocol: Document 07/12/19 13:24 CGR (Rec: 07/12/19 13:55 CGR [email or web address]) OT Gross Range of Motion Upper Extremity Range of Motion Assessment Within Functional Limits OT Strength Upper Extremity Strength Assessment Within Functional Limits OT- Coordination Assessment Upper Extremity Finger to Nose Test Bilateral UE Impaired Finger Tapping Test Bilateral UE Impaired OT-Muscle Tone Assessment Muscle Tone WNL Yes OT Sensation Assessment Edema Edema Absent M9 OT- IP Assessment and Plan Start: 07/12/19 13:23 Freq: Status: Active Protocol: Document 07/12/19 13:24 CGR (Rec: 07/12/19 13:55 CGR [email or web address]) OT Summary Assessment and Plan Potential Rehabilitation Potential Good Analytic Complexity at Evaluation Low Summary OT Impairments Strength,Balance,Coordination, Functional Cognition, Functional Mobility,Self- Feeding,Grooming,Dressing, Toileting,Bathing,Toilet Transfers,Shower Transfers, Activity Tolerance Progress Towards Goals Progressing Toward Goals Assessment Summary Pt presents as a low complexity evaluation. Pt with poor cognition and poor motor planning. Pt will benefit from OT services to address declines. At this time recommendation is for d/c to SNF as pt lives at home alone. Goals Self-Feeding Goal Independent Grooming Goal Independent Dressing Goal Independent Toileting Goal Independent Bathing Goal Independent Toilet Transfer Goal Independent Shower Transfer Goal Independent Days to Meet Goals 10 Frequency of Treatment Frequency Of Treatment Once a Day Treatment Plan OT Treatment Plan ADL Training,Functional Cognition Training,Functional Mobility,Patient/Family Education,Discharge Planning Other Treatment Recommendations and Next ADLs standing at sink, fine Treatment Focus motor skills. Discharge Recommendations OT Discharge Recommendations SNF Rehab Home Equipment Needs TBD Transportation Needs at Discharge Private Vehicle
[2019-07-12 13:24] LABS: RBC Morphology Normal Morphology
--- NOTE | 2019-07-12 14:19 | PC.NURSE ---
Patient has a rash to her l.hand, outlined in black marker. Complains of lower back pain and l.neck pain. Given tylenol and seems to be feeling better. Patient just voided 475cc of tea colored urine.
[2019-07-12] MEDS: carvediloL 25 MG TABLET PO ×2 (15:05→20:21)
[2019-07-12] MEDS: LOSARTAN 50 MG TABLET PO ×2 (15:05→20:22)
[2019-07-12 15:22] LABS: Procalcitonin 0.09 ng/mL (<0.5)
--- NOTE | 2019-07-12 15:56 | CM.IDA ---
Addendum entered by OSCAR Navarro 07/12/19 16:08: Review of therapy notes: PT/OT recommending SNF Original Note: Initial DCP Assessment Note: Pt is an 84 yo female, resident of [facility]. Pt admitted, inpatient 3.11.23 for UTI and pneumonia. PCP: Dr Hai Islas: Rema VALLES Met w/pt briefly this AM, explained role. Pt able to discuss her living situation, lives alone w/ cat and dog, has good friends in [facility] [place] and all family lives in the [place] area- 3 children. Pt feels she is managing well at home. This FUEL DISTRIBUTION SYSTEM OPERATOR did note short term memory loss/confusion and so spoke w/ pt's dtr/DPOA Stephanie to obtain more background Stephanie and spouse about to travel back to [place], copy of DPOA taken. Stephanie states they have been worried about pt for quite some time, living alone, mostly d/t her lack of coordination, strength and balance- extreme fall risk. Pt has been resistant to discussing rodent exterminator care options- [facility] vs [facility] and wants to remain in her home. re: cog baseline; family have noticed forgetfulness but no significant short term memory loss Provided family w/ the Senior Resource Guide and suggested they look into privately paid cg agencies and family felt pt might be agreeable to this. This FUEL DISTRIBUTION SYSTEM OPERATOR suggested SNF upon DC and family hopeful this is recommended and pt agreeable to such, if not possibly home w/ HH ? No agency preference. P: DC likely home w/ HH vs short SNF stay depending on medical POC, progression w/ therapy team and pt's preference on DCP. Following closely and will discuss DC options w/pt once mentally more clear, per family: pt has improved dramatically re: cognition in the last 24 hrs since the start of IV abx OSCAR Navarro Discharge Planning/Care Management Advanced directive, confirm from FAMILY Start: 07/12/19 02:19 Freq: Q24H Status: Active Protocol: Document 07/12/19 13:45 CLL (Rec: 07/12/19 14:14 CLL [id number]) Advance Directive, confirm on record Time 13:00 Person contacted patient Copy received No CM Discharge Assessment Start: 07/12/19 15:54 Freq: Status: Active Protocol: Document 07/12/19 15:54 [place] (Rec: 07/12/19 15:56 [place] [id number]) Discharge Planning Assessment Assigned Manager Protein OSCAR Schaefer DPOA/Assigned Designee Name Stephanie Pelletier dtr Contact Information [phone] Advance Directives? Yes History Provided By Patient,Family Member,Medical Record Prior Living Arrangements House Household Members none Type of transporation used prior to Drives own vehicle admit Willing to Return to Facility? No: Wants to return home Independent with ADL's Yes Is patient alert and oriented? No: Sec to UTI today Patient/Family Preference [facility] Facility Whiteboard Updated in Patient Room with Yes name and ext. # of Manager Protein Review Status In Process
[2019-07-12] MEDS: LOVASTATIN 20 MG TABLET 40 MG PO (20:22)
[2019-07-12] MEDS: diphenhydrAMINE 25 MG TABLET PO (22:27)
[2019-07-12] MEDS: SODIUM CHLORIDE 0.9% 1,000 ML 75 ML IV (22:49)
[2019-07-12] MEDS: POTASSIUM CHLORIDE 20 MEQ TAB 40 MEQ PO (23:30)
[2019-07-13] VITALS (9 sets, daily range): BP systolic 140–177; BP diastolic 71–98; PULSE 75–98; RESP 16–20; TEMP 36.1–37.2; O2SAT 93–96
[2019-07-13] MEDS: CEFTRIAXONE 1 GM/50 ML FROZ.PIGGY IV (00:50)
[2019-07-13] MEDS: AZITHROMYCIN 500 MG in DEXTROSE 5% IN WATER 250 ML IV (03:16)
--- NOTE | 2019-07-13 06:23 | PC.NURSE ---
Patient only voided 75ml on shift, had not voided on evening shift but PAPER ROLLER notified, bladder scan on evening shift was estimated of 103ml. Bladder scanned after 75ml void for an estimate of 276, notified PAPER ROLLER of patient's trends including output and vital signs. Waiting on lab values to determine appropriate treatment, will notify day shift.
[2019-07-13 06:33] LABS: BUN Creatinine Ratio 25.5 (6-22); Blood Urea Nitrogen 28 mg/dL (7-17); Calcium 8.4 mg/dL (8.4-10.2); Carbon Dioxide 24 mmol/L (22-32); Chloride 104 mmol/L (98-107); Estimated Glomerular Filt Rate 47.3 mL/min (>60); Glucose 150 mg/dL (80-110); HEMOLYSIS < 15 (0-50); Potassium 3.9 mmol/L (3.4-5.1); Sodium 134 mmol/L (137-145)
[2019-07-13 06:34] LABS: Hemoglobin 16.4 g/dL (12.0-16.0); Mean Corpuscular HGB Conc 33.4 % (30-36); Mean Corpuscular Hemoglobin 31.1 PG (26-34); Mean Corpuscular Volume 93.3 fL (80-100); Platelet Count 309 X10^3/uL (150-400); Red Blood Cell Count 5.26 X10^6/uL (4.0-5.2); Red Cell Distribution Width 16.5 % (11.6-14.8); White Blood Cell Count 13.7 X10^3/uL (4.5-11.0)
[2019-07-13 06:42] LABS: NT-proBNP (BNP-Adult 18+) 3210 pg/mL (<450)
[2019-07-13 06:58] LABS: Add Manual Diff / Slide Review YES
--- NOTE | 2019-07-13 07:05 | DI.RAD.S_ITS ---
PROCEDURE: XR CHEST 2V INDICATIONS: r/o pneumonia TECHNIQUE: 2 views of the chest were acquired. COMPARISON: [facility], CR, XR CHEST 1V, 07/11/2019, 17:19. FINDINGS: Surgical changes and devices: None. Lungs and pleura: Subtle air space opacities are present in the left midlung. The lungs are otherwise clear. No pleural effusion or pneumothorax. Mediastinum: Mediastinal contours are normal. Heart size is normal. Bones and chest wall: No suspicious bony abnormalities. Soft tissues appear unremarkable. IMPRESSION: Subtle left midlung air space opacities which may represent early infection. Dictated by: Shayla Dunham M.D. on 07/13/2019 at 8:33 Approved by: Shayla Dunham M.D. on 07/13/2019 at 8:33
[2019-07-13 07:31] LABS: Neutrophils Absolute Manual 7809 /uL (3000-5900); Total Cells Counted 100
[2019-07-13 07:32] LABS: RBC Morphology Norm
[2019-07-13] MEDS: LOSARTAN 50 MG TABLET PO ×2 (09:56→22:01)
[2019-07-13] MEDS: ENOXAPARIN 40 MG/0.4 ML SYRINGE SUBCUT ×2 (09:56→09:57)
[2019-07-13] MEDS: carvediloL 25 MG TABLET PO ×2 (09:56→22:02)
[2019-07-13] MEDS: OXYCODONE IR 5 MG TABLET PO ×2 (13:24→22:01)
--- NOTE | 2019-07-13 13:37 | PC.NURSE ---
Assess- Patient unable to void after trying twice, bladder scanned for 218cc. Patient tolerated an in/out cath and she had 275cc of dark clau urine out. Not moving as well as yesterday with pivots and transfers, she complains of back, arm, and lower leg pain. Given 1 oxycodone for discomfort and helpful. IVF stopped and resting comfortably now.
--- NOTE | 2019-07-13 14:16 | CM.DPC ---
DCP SNF Planning: Per MD and RN during bedside rounding, pt making some progress and will closely monitor her fluids and her breathing seems improved but still complaining of back and shoulder pain and not medically stable to d/c for likely another couple of days. Pt's confusion from UTI seems to be resolving but per family pt is not back to baseline. Per PT/OT, recommending d/c to SNF prior to return home alone. SW met bedside with pt, 2 local very supportive friends, and Alejandra Brito ([phone]) and explained role and discussed current recommendation of SNF. Pt states she would be willing to consider SNF if needed but pt did not seem fully oriented to likely remember discussion yet. Alejandra Brito and 2 friends support plan of SNF at d/c and SW provided the [facility] Choice List and discussed the need to find contracted [employer] SNF facility. Family and friend preference would be [facility], [facility], [facility] if any are contracted and willing for SW to call those SNF's and make referral if they are [employer] Contracted. SW also discussed HH if pt improves and possible need to begin discussing private pay caregiver for future need and they inquired about possible Meals [employer] Wheels but state that pt has a group of local friends that plan to check on pt regularly once she gets back home and provide meals for a little while and can help set up Meals on Wheels if needed. Family lives closer to [place] and can provide some assist but not as regularly as pt's local supportive friends. SW called [facility] and they are not currently contracted. SW called [facility] and left ms requesting call back. SW called [facility] and confirmed they are contracted with [employer] and willing to review and begin [employer] auth tomorrow after review today. SW faxed [facility] pt's clinicals to review. PASRR completed in anticipation of SNF at d/c. Plan: [facility] and if [facility] then they will work on [employer] SNF auth. If pt improves, possible home with local friend support and family and HH. OSCAR Kruse
--- NOTE | 2019-07-13 16:04 | PT-IP ANOTE ---
Pt sleeping and refused stating she would get up later.
--- NOTE | 2019-07-13 16:47 | PT-IP ANOTE ---
Contacted pt for PT treatment. She was confused and disoriented to time. When prompted that she might like to get up to the chair for dinner, she insisted it was morning. Spent 10 minutes with the pt attempting to convince her to move toward edge of bed, but she complained of extreme pain and exhibited hyperesthesia with heightened pain response to all touch. She ultimately refused mobility but agreed PT could check on her again in the morning. Will continue to follow.
--- NOTE | 2019-07-13 17:11 | PM.PN.1 ---
Subjective Subjective Date Patient Seen: 07/13/19 Interval history: Patient is an 84-year-old female who was admitted to the hospital for back pain altered mental status felt to be due to atypical pneumonia and a urinary tract infection. Patient reports she continues to have back pain although is somewhat better. She does not have any shortness of breath. Overall she feels like she is improving. Patient lives at home alone. Ideally she would like to be able to return back home. Exam Vital Signs (past 8 hours): - 07/13/19 09:32 07/13/19 11:38 07/13/19 16:27 Temperature 97.8 F 97.4 F L 98.2 F Pulse Rate 76 98 H 82 Respiratory Rate 20 20 17 Blood Pressure 145/78 H 177/98 H 155/93 H Pulse Oximetry 96 93 95 Oxygen Delivery Method Room Air Oxygen Flow Rate 0 Narrative Exam Narrative: Elderly female lying in bed in no obvious distress Lungs: Decreased breath sounds with end-expiratory wheeze Cardiac exam: Regular rate rhythm normal S1-S2 with a 2/6 systolic ejection murmur Abdomen: Soft nontender nondistended Extremities: 1+ edema bilateral Objective Labs Result Diagrams: 07/13/19 06:02 07/13/19 06:02 Labs: Laboratory Results - last 24 hr 07/13/19 07/13/19 06:02 06:02 WBC 13.7 H RBC 5.26 H Hgb 16.4 H Hct 49.0 H MCV 93.3 MCH 31.1 MCHC 33.4 RDW 16.5 H Plt Count 309 Neut % (Auto) Not Reportable Lymph % (Auto) Not Reportable [place] % (Auto) Not Reportable Eos % (Auto) Not Reportable Baso % (Auto) Not Reportable Lymph # (Auto) Not Reportable [place] # (Auto) Not Reportable Baso # (Auto) Not Reportable Total Counted 100 Seg Neutrophils % 57.0 Lymphocytes % (Manual) 13.0 L Monocytes % (Manual) 30.0 H Neutrophils # (Manual) 7809 H Plt Morphology Comment Professor Of Geology RBC Morphology Norm Sodium 134 L Potassium 3.9 Chloride 104 Carbon Dioxide 24 BUN 28 H Creatinine 1.10 H Estimated GFR 47.3 L BUN/Creatinine Ratio 25.5 H Glucose 150 H Calcium 8.4 NT-Pro-B Natriuret Pep 3210 H Assessment & Plan Assessment & Plan narrative: This is an 84-year-old female patient who's admitted to the hospital for altered mental status, metabolic encephalopathy related to severe hypertension with findings of atypical pneumonia and UTI. 1. Metabolic encephalopathy, multifactorial, present on admission, active -The patient is brought in by her daughter states the patient is acutely confused today, patient reports she she is here due to back pain and weakness. -Patient is oriented to person and place only confused as to date and time. -CT of the head is unremarkable for intracranial pathology. -Cause is multifactorial including: Hypertensive encephalopathy, blood pressure is up to 230s over 110s. Urinary tract infection with leukocyte esterase, WBCs and many bacteria reflex to culture. Atypical pneumonia finding on x-ray Acute dehydration, patient hemoconcentrated with a hemoglobin of 18.8 hematocrit of 56.2, urine specific gravity is 1.030 with sediment, dark yellow in color with 1+ ketones. Continue antibiotics to cover both pneumonia and urinary tract infection. The patient does have repeat chest x-ray which shows some atypical infiltrates. 2. Hypertensive encephalopathy, present on admission, active -Patient with known history of hypertension taking carvedilol and losartan. -patient presents to the ER with a blood pressure of 214/119 elevating up into the 230 systolic. -Patient received multiple medications in the ER including nitro sublingual and nitro paste, labetalol IV and hydralazine with improvement of blood pressure to 180 systolic. -Ordered labetalol 10 mg IV as needed every 4 hours as needed for systolic blood pressure greater than 190 or diastolic greater than 110. -Order hydralazine 10 mg IV every 6 hours as needed for blood pressure greater than 200. -Will gently rehydrate the patient with normal saline 100 cc/hour. -patient paced back on her usual home medications. Blood pressure improved significantly. 3. Acute lower urinary tract infection, present on admission, active -Urinalysis reveals leukocyte esterase WBCs and many bacteria. -Patient started on ceftriaxone 1 g IV in the ED is and continued 1 g daily. -Will follow infection markers. Continue ceftriaxone 4. Acute atypical pneumonia, present on admission, active. -Atypical pneumonia noted on chest x-ray. -Patient with elevated white count at 13 0.0 -Patient is started on ceftriaxone 1 g IV in the ED and continue 1 g daily. -Will follow infection markers. 5. Acute dehydration, present on admission, active -The patient presents clinically dehydrated with dry oral mucous membranes, hemoconcentrated with a hemoglobin of 18.8, hematocrit of 56.2, BUN creatinine ratio was 20. -Will rehydrate patient with normal saline 100 cc/hour. -Strict I&Os -Will follow chemistries and blood counts. VTE prophylaxis: SCDs, Lovenox IVF: Normal saline 100 cc/hour Diet: Heart healthy.. The patient is admitted to the hospital due to metabolic encephalopathy that is multifactorial aunts severe hypertension requiring monitoring and intervention. The patient is admitted as an inpatient with expected length of stay to be greater than 2 midnights.
[2019-07-13 21:58] LABS: Adenovirus Not Detected (Not Detect); Bordetella pertussis Not Detected (Not Detect); Chlamydophila pneumoniae Not Detected (Not Detect); Coronavirus 229E Not Detected (Not Detect); Coronavirus HKU1 Not Detected (Not Detect); Coronavirus NL 63 Not Detected (Not Detect); Coronavirus OC43 Not Detected (Not Detect); Human Metapneumovirus Not Detected (Not Detect); Human Rhinovirus/Enterovirus Not Detected (Not Detect); Influenza A Not Detected (Not Detect); Influenza B Not Detected (Not Detect); Mycoplasma pneumoniae Not Detected (Not Detect); Parainfluenza Virus 1 Not Detected (Not Detect); Parainfluenza Virus 2 Not Detected (Not Detect); Parainfluenza Virus 3 Not Detected (Not Detect); Parainfluenza Virus 4 Not Detected (Not Detect); Respiratory Syncytial Virus Not Detected (Not Detect)
[2019-07-13] MEDS: LOVASTATIN 20 MG TABLET 40 MG PO (22:02)
--- NOTE | 2019-07-13 23:40 | PC.NURSE ---
Evening Shift Note Patient unable to void this shift on bedpan, bladder scanned at 2030 and volume of 92cc, bladder scanned 8hrs past last known void on day shift. PIV fluids discontinued during day shift and patient straight cath during day shift. VSS, not complaints of dizziness, patient with adequate oral intake. retail shift manager hospitalist updated on patient condition. Verbal orders to continue to monitor for new symptoms, third shift lieutenant updated.
[2019-07-14] VITALS (9 sets, daily range): BP systolic 142–186; BP diastolic 69–96; PULSE 77–91; RESP 16–20; TEMP 36.7–37.3; O2SAT 95–97
[2019-07-14] MEDS: CEFTRIAXONE 1 GM/50 ML FROZ.PIGGY IV (01:02)
[2019-07-14] MEDS: AZITHROMYCIN 500 MG in DEXTROSE 5% IN WATER 250 ML IV (03:10)
[2019-07-14] MEDS: OXYCODONE IR 5 MG TABLET PO (07:49)
[2019-07-14] MEDS: NITROGLYCERIN 0.4 MG SL TAB SL (08:15)
--- NOTE | 2019-07-14 08:21 | PC.NURSE ---
Addendum entered by Luci Chavez R.N. 07/14/19 15:10: NOTE on JUL: Lovenox 40 mg scanned twice yesterday, this RN did an unscheduled dosing after speaking with pharmacist. Addendum entered by Luci Chavez R.N. 07/14/19 15:08: 1200 patient attempted to ambulate with PT, generalized weakness noted. patient unable to stand without max 2 person assist. Patient up to bsc, incontinent enroute. Patient unable to void on commode. Back to chair. Chair seems to improve patients pain. Patient back to bed for 1400 bladder scan. Scan revealed 195. Patient currently sleeping. Call light in reach, bed alarm on. Addendum entered by Luci Chavez R.N. 07/14/19 15:05: 0800, Patient back to bed, denies chest pain, c/o pain in back, legs, arms and neck. Generalized pain noted. Patient is unable to describe pain further. Denies SOB, dizziness. Patient attempted to use the bedpan. Unable to void. Bladder scan revealed scant urine. Will continue to monitor. Original Note: Patient up to side of bed to use BSC. C/O chest pain, dizziness, pain in neck, patient appears SOB, unable to verbalize specifics of chest pain. This RN spoke with Dr. Veliz, ordered 12 Lead EKG and SL Nitro 0.4 given. Patient is unable to move independently, 2 person assist, generalized weakness noted.
[2019-07-14] MEDS: carvediloL 25 MG TABLET PO ×2 (08:54→20:38)
[2019-07-14] MEDS: LOSARTAN 50 MG TABLET PO ×2 (08:54→20:38)
[2019-07-14 08:59] LABS: Creatine Kinase < 20 U/L (30-135)
[2019-07-14 09:09] LABS: NT-proBNP (BNP-Adult 18+) 2180 pg/mL (<450)
[2019-07-14 09:11] LABS: Troponin I 0.016 ng/mL (0.01-0.034)
--- NOTE | 2019-07-14 11:41 | PT.IPTN ---
Current Diagnoses Metabolic encephalopathy (07/12/19) Physical Therapy Treatment Note M2 PT-IP Current Condition Start: 07/12/19 14:30 Freq: NEEDED Status: Active Protocol: Document 07/12/19 12:45 AB (Rec: 07/12/19 14:44 AB [id number]) Physical Therapy Current Condition Current Condition Evaluation Date 07/12/19 Treatment Diagnosis UTI; difficulty in walking Onset Date 07/12/2019 Precautions Other Precautions falls M3 PT-IP Subjective Start: 07/12/19 14:30 Freq: NEEDED Status: Active Protocol: Document 07/14/19 11:41 CLB (Rec: 07/14/19 13:56 CLB [id number]) Subjective Physical Therapy Visit Type Type Treatment Note Visit Start Time 11:41 Visit Stop Time 12:11 Total Visit Minutes 30 Notes Co-treat with OT Number of FURNACE CHARGING MACHINE OPERATOR Visits 1 Physical Therapy Visit Comments Patient Comments Pt needing to use BSC. M4 PT-IP Mobility and Gait Start: 07/12/19 14:30 Freq: NEEDED Status: Active Protocol: Document 07/14/19 11:41 CLB (Rec: 07/14/19 13:56 CLB [id number]) PT-Transfer Assessment Sit to and From Stand Sit to and from Stand Total Assistance,2 Person Assistance Equipment Transfer Assistive Device Gait Belt,Front Wheeled Walker Orthotic/Prosthetic Devices or Brace: No Transfers Transfer Destination Chair,Bedside Commode Transfer Technique Squat Pivot Transfer Ability Level of Assist Total Assistance,2 Person Assistance Comments Mobility Comments Pt on EOB with OT and RN upon arrival. Pt attempted to stand x2 requiring assist with bending knees to bring feet back into proper position for sit-stand. Pt unable to stand after two attempts. Pt then directed with verbal and tactile cues for hug position around therapists shoulders while second therapist guides hips onto BSC. Pt sat on BSC SBA for several minutes before same transfer performed to chair. Pt left in chair with chair alarm on and all needs within reach. Gait Assessment Comments Gait Comments unable PT-Balance Assessment Sitting Balance and Reactions Static Sitting Balance Ability Fair Dynamic Sitting Balance Ability Poor Standing Balance and Reactions Static Standing Balance Ability Poor Dynamic Standing Balance Ability Poor Device Used FWW M5 PT-IP Objective Assessments Start: 07/12/19 14:30 Freq: NEEDED Status: Active Protocol: Document 07/12/19 12:45 AB (Rec: 07/12/19 14:44 AB [id number]) Orientation Orientation/Cognition Level of Alertness Confusional State Orientation Name,Place,Situation Language Function Ability Hard of Hearing Safety Awareness Decreased Safety Awareness Memory Description Short Term Impaired,Jail Impaired Gross Range of Motion Lower Extremity ROM Assessment Within Functional Limits Strength Lower Extremity Strength Hip 4-/5 Knee 4-/5 Sensation Assessment Sensation Gross Sensation WNL Muscle Tone Muscle Tone WNL Yes M6 PT-IP Treatment Start: 07/12/19 14:30 Freq: NEEDED Status: Active Protocol: Document 07/12/19 12:45 AB (Rec: 07/12/19 14:44 AB [id number]) Physical Therapy Treatment Education Education Provided Safety M7 PT-IP Assessment and Plan Start: 07/12/19 14:30 Freq: NEEDED Status: Active Protocol: Document 07/14/19 11:41 CLB (Rec: 07/14/19 13:56 CLB [id number]) PT Summary Assessment and Plan Potential Rehabilitation Potential Fair Status of Condition at Evaluation Evolving Summary Impairments Pain,ROM,Strength,Balance, Coordination,Sensation,Tone, Cognition,Bed Mobility, Transfers,Gait,Activity Tolerance Progress Towards Goals Slow Progress due to Pain,Slow Progress due to Medical Issues,Slow Progress due to Activity Tolerance Assessment Summary Pt unable to come to full stand requiring total assist x2 for squat pivot transfer to BSC then to chair. Pt required max verbal and tactile cues during transfer. Goals Bed Mobility Goal Contact Guard Assistance Transfer Goal Contact Guard Assistance,Front Wheeled Walker Gait Goal Contact Guard Assistance,Front Wheel Walker Gait Distance 100 Days to Meet Goals 10 Frequency of Treatment Frequency Of Treatment Once a Day Treatment Plan Physical Therapy Treatment Plan Bed Mobility Training,Transfer Training,Gait Training, Therapeutic Exercise,Balance Retraining,Discharge Planning, Hot or Cold Pack,Neuromuscular Re-ed,Coordination Retraining Recommendations To Nursing Amount of Assist Needed 2 Person Assist,Total Assistance,Mechanical Lift Discharge Recommendations PT Discharge Recommendations SNF Rehab Transportation Needs at Discharge Private Vehicle,Wheelchair/ Cabulance
[2019-07-14] MEDS: ACETAMINOPHEN 325 MG TABLET 650 MG PO (11:45)
--- NOTE | 2019-07-14 12:11 | OT.IP.TRT ---
Current Diagnoses Metabolic encephalopathy (07/12/19) Occupational Therapy Treatment Note M2 OT-IP Current Condition Start: 07/12/19 13:23 Freq: Status: Active Protocol: Document 07/12/19 13:24 CGR (Rec: 07/12/19 13:55 CGR [id number]) Occupational Therapy Current Condition Current Condition Evaluation Date 07/12/19 Treatment Diagnosis Metabolic encephalopathy, HTN, UTI, PNA Diagnosis Onset Date 07/11/19 M3 OT- IP Subjective and Pain Start: 07/12/19 13:23 Freq: Status: Active Protocol: Document 07/14/19 12:13 CGR (Rec: 07/14/19 12:30 CGR [id number]) OT- Subjective Occupational Therapy Visit Type Type Progress Note Visit Start Time 11:24 Visit Stop Time 12:11 Total Visit Minutes 47 Notes Partial co-treat with PT OT Pain Assessment Pain When Pain Assessed During Mobility Pain Present Pain Present Pain Reported Location Left Neck Scale Used Unable to state Pain Behaviors Calling Out,Facial Grimacing, Guarding Management Techniques Modification of Treatment, Timing of Activity with Medications M4 OT- IP ADL's Start: 07/12/19 13:23 Freq: Status: Active Protocol: Document 07/14/19 12:13 CGR (Rec: 07/14/19 12:30 CGR [id number]) OT [id number] General Evaluation Self-Feeding Ability Moderate Assistance Areas Needing Assistance Drinking From Cup/Glass Comments OT Self-Feeding Comments Pt took medications while OT present. Pt needed max extra time to take pills and ~8 attempts before swallowing pills. OT ADL-Grooming General Evaluation Grooming Ability Contact Guard Assistance Areas Needing Assistance Retrieving/Set-up of Grooming Items,Face Washing Comments OT Grooming Comments Washed face seated on BSC OT ADL-Oral Care Comments Oral Care Comments Not performed OT ADL-Dressing General Eval Lower Body Dressing Ability Total Assistance Areas Needing Assistance Underpants/Brief,Socks Comments OT Dressing Comments socks and brief OT ADL-Toileting General Evaluation Toileting Ability Maximum Assistance Areas Needing Assistance Manage Clothing,Perform Perineal Hygiene Devices Toileting Assistive Devices Commode Comments OT Toileting Comments Transfered to BSC with total assist x 2 but urinated prior to seated on BSC. Pt needed total assist for pericare and pulling up brief. OT ADL-Bathing Comments OT Bathing Comments Not appropriate in this session. M5 OT- IP IADL's Start: 07/12/19 13:23 Freq: Status: Active Protocol: Document 07/12/19 13:24 CGR (Rec: 07/12/19 13:55 CGR [id number]) OT-Instrumental Activities of Daily Living Deficits IADL Deficits Identified Deficits Home Safety Awareness Awareness of Need for Assistance at Home Decreased Awareness Ability to Problem Solve Emergency Unable to Problem Solve Situations M6 OT- IP Functional Cognition Start: 07/12/19 13:23 Freq: Status: Active Protocol: Document 07/14/19 12:13 CGR (Rec: 07/14/19 12:30 CGR [id number]) Cognitive Factors Limiting Selfcare Function Cognitive Ability Level of Alertness Alert,Confusional State Patient Orientation Name Attention Span Ability Unable to Focus,Unable to Sustain Attention Cognitive Comments Cognitive Assessment Comments Pt with decrease in cognitive ability since working with this director underwriter sales on 07/12/19. Noted parroting in this session or not responding to questions. M7 OT- IP Mobility and Balance Start: 07/12/19 13:23 Freq: Status: Active Protocol: Document 07/14/19 12:13 CGR (Rec: 07/14/19 12:30 CGR [id number]) OT- Bed Mobility Assessment Rolling Level of Assistance Total Assistance,1 Person Assistance,Head of Bed Elevated,Bedrails Supine to Sit Supine to Sit Assist Total Assistance,1 Person Assistance,Head of Bed Elevated,Bedrails Scooting Scooting to Edge of Bed Total Assistance,1 Person Assistance,Head of Bed Elevated OT-Transfer Assessment Sit to and From Stand Sit to and from Stand Total Assistance,2 Person Assistance Transfers Transfer Ability Total Assistance,2 Person Assistance Technique Transfer Destination Bed,Bedside Commode,Chair Transfer Technique Squat Pivot Devices Transfer Assistive Devices Gait Belt Comments Mobility Comments Attempted multiple times with sit to stand using walker but pt unable to perform. Sit to stand without walker was more sucessful but pt with poor motor planning. OT- Balance Assessment Sitting Balance and Reactions Static Sitting Balance Ability Good Dynamic Sitting Balance Ability Fair M8 OT- IP Objective Assessments Start: 07/12/19 13:23 Freq: Status: Active Protocol: Document 07/12/19 13:24 CGR (Rec: 07/12/19 13:55 CGR [id number]) OT Gross Range of Motion Upper Extremity Range of Motion Assessment Within Functional Limits OT Strength Upper Extremity Strength Assessment Within Functional Limits OT- Coordination Assessment Upper Extremity Finger to Nose Test Bilateral UE Impaired Finger Tapping Test Bilateral UE Impaired OT-Muscle Tone Assessment Muscle Tone WNL Yes OT Sensation Assessment Edema Edema Absent M9 OT- IP Assessment and Plan Start: 07/12/19 13:23 Freq: Status: Active Protocol: Document 07/14/19 12:13 CGR (Rec: 07/14/19 12:30 CGR [id number]) OT Summary Assessment and Plan Potential Rehabilitation Potential Good Analytic Complexity at Evaluation Low Summary OT Impairments Strength,Balance,Coordination, Functional Cognition, Functional Mobility,Self- Feeding,Grooming,Dressing, Toileting,Bathing,Toilet Transfers,Shower Transfers, Activity Tolerance Progress Towards Goals Progressing Toward Goals Assessment Summary Pt particiapted in OT services . Pt had difficulty with motor planning all movement and appeared fearful of transfers. Pt tolerated total assist 2 person transfer to chair and BSC and left sitting in chair at end of session, call button in hand and chair fall alarm on. Pt able to wash face with set up but unable to accurately get cup to mouth. Noted decline in cognitive function from eval on 07/12/19. Recommendation is now for SNF. Goals Self-Feeding Goal Independent Grooming Goal Independent Dressing Goal Independent Toileting Goal Independent Bathing Goal Independent Toilet Transfer Goal Independent Shower Transfer Goal Independent Days to Meet Goals 9 Frequency of Treatment Frequency Of Treatment Once a Day Treatment Plan OT Treatment Plan ADL Training,Functional Cognition Training,Functional Mobility,Patient/Family Education,Discharge Planning Other Treatment Recommendations and Next ADLs standing at sink, fine Treatment Focus motor skills. Discharge Recommendations OT Discharge Recommendations SNF Rehab Home Equipment Needs TBD Transportation Needs at Discharge Private Vehicle
--- NOTE | 2019-07-14 14:13 | DI.CT.S_ITS ---
PROCEDURE: CT THORACIC SPINE WO CON INDICATIONS: back pain with bi LE weakness TECHNIQUE: Noncontrast 3 mm thick sections acquired through the region of interest in the thoracic spine. Sagittal and coronal reformats were then constructed. For radiation dose reduction, the following was used: automated exposure control. COMPARISON: [facility], MR, MR LUMBAR SPINE WO CON, 07/11/2019, 20:16. FINDINGS: Image quality: Excellent. Bones: There is normal overall bony alignment. Chronic appearing L1 compression deformity is stable compared to prior MRI examination. No acute vertebral body compression fractures. No suspicious sclerotic or lytic bony lesions. Central spinal canal is of normal overall caliber. Moderate to severe multilevel degenerative disc changes are noted. Mild multilevel facet arthropathy. Moderate right and mild left T9-T10 neural foraminal narrowing. No definite neural compression. Soft tissues: No paravertebral masses or hematomas. Visualized posteromedial lungs appear clear. 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 Atherosclerotic calcifications noted in the aorta and the visualized coronary vasculature. IMPRESSION: 1. Multilevel degenerative disc disease. 2. Multilevel facet arthropathy. 3. No central stenosis. 4. Moderate right and mild left T9-T10 neural foraminal narrowing. 5. No neural compression. 6. Chronic L1 compression fracture. No acute compression fractures. No acute osseous lesion. If symptoms and/or clinical suspicion for pathology persists, evaluation with MRI may be helpful for further assessment. Dictated by: Belkis Tsang MD, PhD on 07/14/2019 at 15:12 Approved by: Belkis Tsang MD, PhD on 07/14/2019 at 15:15
--- NOTE | 2019-07-14 14:14 | P.PN_ITS ---
Subjective Subjective Date Patient Seen: 07/14/19 Interval history: Patient is 84-year-old female admitted to the hospital for back pain radiating to the legs, severe altered mental status, dehydration, possible atypical pneumonia and UTI. She has not had fever, cough or dyspnea. She had urinary retention yesterday requiring straight catheterization. She continues to complain of significant back pain. She is still very weak in the legs and max 2 person assist. Exam Vital Signs (past 8 hours): - 07/14/19 08:00 07/14/19 08:15 07/14/19 10:21 Temperature 98.5 F Pulse Rate 89 89 Respiratory Rate 20 Blood Pressure 186/92 H 186/92 H 155/89 H Pulse Oximetry 95 07/14/19 12:00 Temperature 98.6 F Pulse Rate 77 Respiratory Rate 18 Blood Pressure 142/77 H Pulse Oximetry 95 Oxygen Delivery Method Room Air Oxygen Flow Rate 0 Narrative Exam Narrative: General: Alert and pleasant female sitting in hospital chair, NAD Lungs: Bilateral basilar crackles, no wheeze Heart: Regular rhythm Abdomen: Soft, nontender Extremities: No edema Neurological: LE strength hard to accurately assess with patient recline in chair, but proximal is 0/5 bilaterally, distal is 1/5 on the right and 0/5 on the left. Hyporeflexive DTRs. Both her knees and ankles are tender to slightest palpation and she has pain with passive bilateral knee and ankle flexion. Objective Labs Result Diagrams: 07/13/19 06:02 07/13/19 06:02 Labs: Laboratory Results - last 24 hr 07/13/19 07/14/19 07/14/19 20:20 08:30 08:30 Total Creatine Kinase < 20 L CK-MB (CK-2) TNP CK-MB (CK-2) Rel Index TNP Troponin I 0.016 NT-Pro-B Natriuret Pep 2180 H Chlamy pneumoniae PCR Not detected Adenovirus (PCR) Not detected B.parapertussis DNA PCR Not detected Coronavirus OC43 (PCR) Not detected Coronavirus HKU1 (PCR) Not detected Coronavirus 229E (PCR) Not detected Coronavirus NL63 (PCR) Not detected Human Metapneumovir PCR Not detected Influenza Type A (PCR) Not detected Influenza Type B (PCR) Not detected M. pneumoniae (PCR) Not detected Parainfluenza 1 (PCR) Not detected Parainfluenza 2 (PCR) Not detected Parainfluenza 3 (PCR) Not detected Parainfluenza 4 (PCR) Not detected RSV (PCR) Not detected Entero/Rhino (PCR) Not detected Assessment & Plan Assessment & Plan narrative: Patient is 84-year-old female admitted to the hospital for back pain radiating to the legs, severe altered mental status, dehydration, possible atypical pneumonia and UTI. She has not had fever, cough or dyspnea. She had urinary retention yesterday requiring straight catheterization. She continues to complain of significant back pain. She is still very weak in the legs and max 2 person assist. 1. Metabolic encephalopathy, multifactorial, present on admission, active -clinically improved since admission -Cause is multifactorial including: Hypertensive encephalopathy, blood pressure is up to 230s over 110s. Urinary tract infection with leukocyte esterase, WBCs and many bacteria reflex to culture. Atypical pneumonia finding on x-ray Acute dehydration, patient hemoconcentrated with a hemoglobin of 18.8 hematocrit of 56.2, urine specific gravity is 1.030 with sediment, dark yellow in color with 1+ ketones. -Continue antibiotics to cover both pneumonia and urinary tract infection. The patient does have repeat chest x-ray which shows some atypical infiltrates. 2. Hypertensive encephalopathy, present on admission, active -Patient with known history of hypertension taking carvedilol and losartan. -patient presents to the ER with a blood pressure of 214/119 elevating up into the 230 systolic. -Patient received multiple medications in the ER including nitro sublingual and nitro paste, labetalol IV and hydralazine with improvement of blood pressure to 180 systolic. -she has not needed IV labetalol and hydralazine for the past couple of days since rehydrated. -patient is back on her usual home medications. Blood pressure improved significantly. 3. Acute lower urinary tract infection, present on admission, active -Urinalysis reveals leukocyte esterase WBCs and many bacteria. Urine culture grew aerococcus, sensitivity not done on in house panel. -Patient started on ceftriaxone 1 g IV in the ED is and continued 1 g daily. -Continue ceftriaxone 4. Acute atypical pneumonia, present on admission, active. -Atypical pneumonia noted on chest x-ray. The infiltrates are very subtle and patient does not have cough, dyspnea or fever which makes a diagnosis rather equivocal. -Patient with elevated white count at 13.0 but procalcitonin only 0.09. -Patient is on Iv rocephin and complete 3 days IV Zithromax -consider discontinuing all antibiotic after 5 days of treatment which would be after dose on July 14 5. Acute dehydration, present on admission, active -The patient presents clinically dehydrated with dry oral mucous membranes, hemoconcentrated with a hemoglobin of 18.8, hematocrit of 56.2, BUN creatinine ratio was 20. -off of IV fluids now and taking fluids by mouth. 6. Acute urinary retention, active -patient required straight catheterization on July 13 -continue intermittent bladder catheterization as required 7. Back pain with bilateral lower extremity paresis, present on admission, ac tive -lumbar MRI showed mild to moderate degenerative changes but no severe findings -concern remains for possible cervical spondyloarthropathy or thoracic area cord compression causing her back pain and profound weakness of the legs -obtain cervical and thoracic MRI -patient remains 2 person max assist with PT VTE prophylaxis: SCDs, Lovenox
--- NOTE | 2019-07-14 14:14 | DI.CT.S_ITS ---
PROCEDURE: CT CERVICAL SPINE WO CON INDICATIONS: back pain with bi LE weakness TECHNIQUE: Noncontrast 3 mm thick sections acquired from the skull base to the T4 level. Sagittal and coronal reformats were then constructed. For radiation dose reduction, the following was used: automated exposure control, adjustment of mA and/or kV according to patient size. COMPARISON: , CT, CT THORACIC SPINE WO CON, 07/14/2019, 15:21. FINDINGS: Image quality: Excellent. Bones: No fractures or dislocations. There is trace C2-C3 and C7-T1 degenerative anterolisthesis. Visualized superior ribs are intact. C2-C3: Slight loss of disc height. Mild, diffuse disc bulge. Moderate bilateral facet hypertrophy. Mild narrowing of the central canal. Moderate bilateral neural foraminal narrowing. No neural compression. C3-C4: Complete loss of this substance and near complete vertebral body fusion. Posterior endplate osteophytosis. Mild right and moderate left facet hypertrophy. Mild narrowing of the central canal. Moderate right and severe left neural foraminal narrowing with compression of the exiting left C4 nerve root. C4-C5: Loss of disc height. Mild, diffuse disc bulge. mild bilateral facet hypertrophy. Moderate narrowing of the central canal. Moderate bilateral neural foraminal narrowing. No neural compression. C5-C6 level loss of disc height. Mild, diffuse disc bulge. Mild bilateral facet hypertrophy. Moderate narrowing of the central canal. Severe bilateral neural foraminal narrowing and compression of the exiting C6 nerve roots. C6-C7: Loss of disc height. Mild, diffuse disc bulge. Mild bilateral facet hypertrophy. Mild narrowing of the central canal. Severe right and mild left neural foraminal narrowing with compression of the exiting right C7 nerve root. C7-T1: Loss of disc height. Mild, diffuse disc bulge. Moderate bilateral facet hypertrophy. No central stenosis. Mild bilateral neural foraminal narrowing. No neural compression. Soft tissues: Prevertebral soft tissues are normal in thickness. No paravertebral hematomas. No apical pneumothoraces. IMPRESSION: 1. Multilevel degenerative disc disease. 2. Multilevel facet arthropathy. 3. Moderate C4-C5 and C5-C6 central canal narrowing. Mild C2-C3 and C3 on C4 C6-C7 central canal narrowing. 4. Severe bilateral C5-C6 neuroforaminal narrowing with compression of the exiting C6 nerve roots. Moderate right and severe left C3-C4 neural foraminal narrowing with compression of the exiting left C4 nerve root. Severe right and mild left C6-C7 neural foraminal narrowing with compression of the exiting right C7 nerve root. 5. No fracture. No acute osseous lesion. If symptoms and/or clinical suspicion for pathology persists, evaluation with MRI may be helpful for further assessment. Dictated by: Belkis Tsang MD, PhD on 07/14/2019 at 14:59 Approved by: Belkis Tsang MD, PhD on 07/14/2019 at 15:07
[2019-07-14] MEDS: ENOXAPARIN 40 MG/0.4 ML SYRINGE SUBCUT (15:04)
--- NOTE | 2019-07-14 15:56 | DIET.PN ---
Dietary Progress Note Assessment: Patient is 84-year-old female admitted to the hospital for back pain radiating to the legs, severe altered mental status, dehydration, possible atypical pneumonia and UTI. She reports severe decrease in PO's and appetite. She has lost some weight since her admission in April. She was not able to provide much as far as diet history during this visit. She is not interested in ONS ensure. HT: 165.1cm WT: 75.6kg UBW: 80kg BMI: 27.7 Labs: BUN: 28 Cr: 1.1 eGFR: 47.3 Gluc: 146, 150 MNA: 7 Mikie: 15 PO's: <30% Nutrition Diagnosis: Inadequate energy intake r/t poor appetite aeb reports/observation of estimated energy intake from diet <70% EER. Interventions: Provided handouts on high calorie/high protein nutrition therapy. Recommend small frequent meals with high protein content at meals and snacks. Will provide ONS high pro smoothies as requested by patient. Diet Order: Heart healthy EER: 1800 kcal; 7.5 g pro @ 1.3g/kg IBW Monitoring/Evaluations:Wt, PO's
--- NOTE | 2019-07-14 17:17 | DI.MRI.S_ITS ---
PROCEDURE: MR CERVICAL SPINE WO CON INDICATIONS: r/o cervical spondylosis TECHNIQUE: Noncontrast sagittal T1 spin echo and T2 fast spin echo, sagittal STIR, foraminal oblique sagittal T2 fast spin echo, and axial gradient echo or T2 fast spin echo through the cervical spine. COMPARISON: None. FINDINGS: Image quality: Excellent. Alignment and Curvature: There is normal bony alignment. Bone Marrow: Marrow demonstrates normal overall signal considering the degenerative disc disease present, and there is no suspicion for trauma or underlying infection or neoplasm. Spinal Cord: Visualized spinal cord has normal size and signal considering multilevel impingement by osteophytic spurring. No cerebellar tonsillar herniation. Paraspinous Soft Tissues: No paravertebral masses. Prevertebral soft tissues are normal in thickness. C2-C3: Normal appearance except for slight disc height reduction. C3-C4: Moderate degenerative disc disease, slight posterior disc bulge. No significant facet osteoarthritis and there is only minimal anterior spinal stenosis. C4-C5: Moderately severe degenerative disc disease with a posterior broad-based transverse disc bulge. Facet osteoarthritis at this level from posterior, symmetric bilaterally, produces osteophytes combine with the posterior disc bulging to produce moderately severe spinal stenosis and foraminal stenosis. C5-C6: The degree of degenerative disc disease is greater than at the level above, with larger anterior and posterior projecting osteophytes from the disc margins. Facet hypertrophy is symmetric bilaterally, resulting in moderately severe to severe spinal and foraminal stenosis. C6-C7: The degenerative disc disease at this level is near severe, with anterior and posterior projecting osteophytes and with also facet osteoarthritis to the degree that anterior projecting osteophytes result in near severe spinal and foraminal stenosis. C7-T1: Mild to moderate degenerative disc disease, no significant spinal or foraminal stenosis. IMPRESSION: Multilevel spinal and foraminal stenosis as discussed above most pronounced from C4 through C7. Spinal and foraminal stenosis causes impingement on multiple nerve roots through these regions, symmetric bilaterally, and no disc herniation or prior trauma is found. Dictated by: Miah Hdz M.D. on 07/14/2019 at 19:56 Approved by: Miah Hdz M.D. on 07/14/2019 at 20:01
[2019-07-14] MEDS: LOVASTATIN 20 MG TABLET 40 MG PO (20:39)
[2019-07-15] VITALS (7 sets, daily range): BP systolic 130–199; BP diastolic 70–103; PULSE 86–101; RESP 18–23; TEMP 36.4–37.5; O2SAT 93–96
[2019-07-15] MEDS: CEFTRIAXONE 1 GM/50 ML FROZ.PIGGY IV (01:20)
--- NOTE | 2019-07-15 09:41 | PC.NURSE ---
Addendum entered by Sandra Sewell R.N. 07/15/19 14:06: Back to bed via negar lift. Patient quite somnolent this afternoon and a bit more confused than this morning. Had a very wet brief, PVR bladder scan showed 46 ml. Patient resistant during brief change/brenden-care, yelling out no, no, no and pushing back against us, but she did allow us to finish getting her cleaned up. Turned onto L side w/ heels floated. Call light within reach, bed alarm on. Addendum entered by Sandra Sewell R.N. 07/15/19 11:50: Brief checked and was dry. Patient denied urge/need to void. Negar lift used to transfer from bed to chair (per request from PT/OT so they can work on exercises with her in the chair. Patient tolerated lift chair without much complaint. Old bed swapped for a Gemma bed. Set up in chair with belongings and call light within reach. Chair alarm on. PT/OT in with her now. Addendum entered by Sandra Sewell R.N. 07/15/19 11:02: BP rechecked was 130/70, HR in the 80's. Resting comfortably at this time, FLACC score 0. This information writer confirmed w/ Dr Veliz that she will be putting in the order for ortho consult. Addendum entered by Sandra Sewell R.N. 07/15/19 10:18: HTN: Given scheduled BP meds (Losartan and Coreg) approx 0950. Plan to re-check BP shortly. Patient is awake and sitting up in bed working on her breakfast, denies needs at this time. Call light in reach, bed alarm on. Original Note: Shift summary: Awakened approx 0915. Oriented to self and year. Forgot she was in the hospital, but once reminded she was able to say correctly that she is in the [facility]. Did not have any recollection of being straight-cathed during the night. Denies fever/chills/body aches. T 99.5 this morning. Brief was wet with urine. Patient denies any urinary urgency or s/sx at this time. Was very upset at being rolled for brenden-care and clean brief placement- C/O it hurts too much when you move me, referring to pain in her back and both legs. Plan to give analgesic with a.m. meds if patient agreeable. Circulation/sensation WNL to extremities, weakness all extremities. Bilateral heels pink and blanchable, floated to offload and implementing Q2H repositioning since patient does not seem to move herself much at all. Lungs CTA, HRR. Hypertensive. Able to make needs known, reoriented to call light. Call light and belongings within reach, bed alarm active.
[2019-07-15] MEDS: LOSARTAN 50 MG TABLET PO ×2 (09:52→21:57)
[2019-07-15] MEDS: OXYCODONE IR 5 MG TABLET PO (09:52)
[2019-07-15] MEDS: ACETAMINOPHEN 325 MG TABLET 650 MG PO (09:52)
[2019-07-15] MEDS: ENOXAPARIN 40 MG/0.4 ML SYRINGE SUBCUT (09:52)
[2019-07-15] MEDS: SODIUM CHLORIDE 0.9% FLUSH 10 ML IV ×2 (09:54→21:57)
[2019-07-15] MEDS: carvediloL 25 MG TABLET PO ×2 (09:54→21:56)
--- NOTE | 2019-07-15 12:00 | OT.IP.TRT ---
Current Diagnoses Metabolic encephalopathy (07/12/19) Occupational Therapy Treatment Note M2 OT-IP Current Condition Start: 07/12/19 13:23 Freq: Status: Active Protocol: Document 07/12/19 13:24 CGR (Rec: 07/12/19 13:55 CGR [id number]) Occupational Therapy Current Condition Current Condition Evaluation Date 07/12/19 Treatment Diagnosis Metabolic encephalopathy, HTN, UTI, PNA Diagnosis Onset Date 07/11/19 M3 OT- IP Subjective and Pain Start: 07/12/19 13:23 Freq: Status: Active Protocol: Document 07/15/19 12:00 PJM (Rec: 07/15/19 12:23 PJM [id number]) OT- Subjective Occupational Therapy Visit Type Type Treatment Note Visit Start Time 11:45 Visit Stop Time 12:00 Total Visit Minutes 15 Notes Co tx with P.T. as 2 PA needed for mobility attempts Occupational Therapy Visit Comments Patient Comments minimal verbalization from pt this session OT Pain Assessment FLACC Pain Scale Face Occasional grimace/frown Legs Normal position; relaxed Activity Quiet, moves easily Cry No cry (awake or asleep) Consolability Reassurable with touch FLACC Total 2 Location Bilateral Leg Intensity 2 Scale Used Numeric (1 - 10) M4 OT- IP ADL's Start: 07/12/19 13:23 Freq: Status: Active Protocol: Document 07/15/19 12:00 PJM (Rec: 07/15/19 12:23 PJM [id number]) OT [id number] Comments OT Self-Feeding Comments pt too lethargic to attempt meal try this session OT ADL-Grooming General Evaluation Grooming Ability Maximum Assistance Areas Needing Assistance Face Washing Comments OT Grooming Comments pt wiped R side of face with poor thoroughness with max verbal cues after washcloth placed in R hand M5 OT- IP IADL's Start: 07/12/19 13:23 Freq: Status: Active Protocol: Document 07/12/19 13:24 CGR (Rec: 07/12/19 13:55 CGR [id number]) OT-Instrumental Activities of Daily Living Deficits IADL Deficits Identified Deficits Home Safety Awareness Awareness of Need for Assistance at Home Decreased Awareness Ability to Problem Solve Emergency Unable to Problem Solve Situations M6 OT- IP Functional Cognition Start: 07/12/19 13:23 Freq: Status: Active Protocol: Document 07/15/19 12:00 PJM (Rec: 07/15/19 12:23 [facility] [id number]) Cognitive Factors Limiting Selfcare Function Cognitive Ability Level of Alertness Lethargic Patient Orientation Name,Age,Month Attention Span Ability Unable to Focus,Unable to Sustain Attention Cognitive Comments Cognitive Assessment Comments Pt very lethargic this session possible due to oxycodone given prior to tx per discussion with RN. King OT- IP Assessment and Plan Start: 07/12/19 13:23 Freq: Status: Active Protocol: Document 07/15/19 12:00 [facility] (Rec: 07/15/19 12:23 [facility] [id number]) OT Summary Assessment and Plan Summary Assessment Summary Pt too lethargic to participate this session despite max verbal and tactile cues, likely due to pain meds. Unable to attempt sit to stand trials with P.T. as planned. Will attempt again in AM. RN to decreased dosage of pain meds. Goals Self-Feeding Goal Independent Grooming Goal Independent Dressing Goal Independent Toileting Goal Independent Bathing Goal Independent Toilet Transfer Goal Independent Shower Transfer Goal Independent Days to Meet Goals 9 Frequency of Treatment Frequency Of Treatment Once a Day Treatment Plan OT Treatment Plan ADL Training,Functional Cognition Training,Functional Mobility,Patient/Family Education,Discharge Planning Discharge Recommendations OT Discharge Recommendations SNF Rehab Transportation Needs at Discharge Wheelchair/Cabulance
--- NOTE | 2019-07-15 16:27 | PM.PN.1 ---
Subjective Subjective Date Patient Seen: 07/15/19 Interval history: Patient is an 84-year-old female who was admitted to the hospital for altered mental status. Patient had a chest x-ray which suggested possible pneumonia. She had a UA which is positive for aerococcus. The patient has urinary retention. She underwent CT scanning an MRI of the cervical spine last night. This confirmed severe cervical foraminal stenosis with impingement of the cervical spine at multiple levels. Patient continues to complain of neck pain. She is more confused today after receiving 5 mg of oxycodone. Her granddaughter is at the bedside and explained the results of the MRI to her. Patient remains a 2 person maximum assist and is unable ambulate independently. Exam Vital Signs (past 8 hours): - 07/15/19 09:29 07/15/19 10:59 07/15/19 15:48 Temperature 99.5 F 98 F 97.6 F Pulse Rate 101 H 86 91 H Respiratory Rate 20 20 20 Blood Pressure 199/103 H 130/70 161/94 H Pulse Oximetry 93 93 96 Oxygen Delivery Method Room Air Oxygen Flow Rate 0 Narrative Exam Narrative: Pleasant female somewhat confused today but pain better controlled Lungs: Decreased breath sounds bilaterally Cardiac exam: Regular rate rhythm normal S1-S2 with a 2/6 systolic ejection murmur Abdomen: Obese soft nontender nondistended Extremities: Trace edema bilateral Objective Labs Result Diagrams: 07/13/19 06:02 07/13/19 06:02 Assessment & Plan Assessment & Plan narrative: Assessment & Plan Assessment & Plan narrative: Patient is 84-year-old female admitted to the hospital for back pain radiating to the legs, severe altered mental status, dehydration, possible atypical pneumonia and UTI. She has not had fever, cough or dyspnea. She had urinary retention yesterday requiring straight catheterization. She continues to complain of significant back pain. She is still very weak in the legs and max 2 person assist. 1. Metabolic encephalopathy, multifactorial, present on admission, active -clinically improved since admission -Cause is multifactorial including: -currently most likely related to narcotics -will discontinue oxycodone, and start Ultram at this time 2. Hypertensive encephalopathy, present on admission, active -Patient with known history of hypertension taking carvedilol and losartan. -go is a blood pressure of 160 systolic her left -need to control pain in addition to blood pressure 3. Acute lower urinary tract infection, present on admission, active - patient with a positive UA on admission Unclear whether this reflects true infection or not Culture reveals aerococcus Sensitivities not available yet 4. Acute atypical pneumonia, present on admission, active. -Atypical pneumonia noted on chest x-ray. The infiltrates are very subtle and patient does not have cough, dyspnea or fever which makes a diagnosis rather equivocal. -Patient with elevated white count at 13.0 but procalcitonin only 0.09. -agree with discontinuation of antibiotics 5. Acute dehydration, present on admission, active -The patient presents clinically dehydrated with dry oral mucous membranes, hemoconcentrated with a hemoglobin of 18.8, hematocrit of 56.2, BUN creatinine ratio was 20. -off of IV fluids now and taking fluids by mouth. 6. Acute urinary retention, active -patient required straight catheterization on July 13 -continue intermittent bladder catheterization as required 7. Cervical stenosis with evidence of nerve impingement -patient very symptomatic in terms of mobility and pain -discussed with her granddaughter -have consult orthopedics who recommends outpatient evaluation and possible surgical intervention -will consult palliative care -patient and family to decide on surgical treatment versus comfort care
--- NOTE | 2019-07-15 16:44 | CM.DPC ---
DCP/Continued: Reviewed chart. Spoke with provider/Dr. Veliz this AM. She reports that she is getting orthopedic consult today. Patient has bed at [facility] with authorization from [employer] through 07-16-19. Provider aware. Spoke with Amairani at [facility] this AM she reports that she cannot confirm bed after Sunday, because they are filling up. Amairani confirms that [employer] authorization only good through tomorrow as well. CM/Pole Inspector Annie updated. P: [facility]. Patient would benefit from CM visit to update and or confirm d/c disposition. OSCAR Polanco
--- NOTE | 2019-07-15 18:26 | PM.CN ---
History of Present Illness Consult details Date Patient Seen: 07/15/19 Time Patient Seen: 18:26 Chief complaint: Back pain Reason for consult: Difficulty ambulating Requesting provider: Yamila Veliz Narrative: 84-year-old female who was admitted for confusion also complaining of difficulty with ambulation. Patient states she has had difficulty ambulating for many months now. Unsure of the exact date. Patient denies any bowel or bladder changes. But due to difficulty ambulating while in the hospital, Orthopedics was consulted. Meds Home Medications and Allergies Home Medications Medication Instructions Recorded Confirmed Type losartan 50 mg PO BID #0 07/30/12 07/11/19 History carvedilol 25 mg PO BID 04/29/19 07/11/19 History diphenhydramine HCl [Sleep Aid 25 mg PO BEDTIME PRN 04/29/19 07/11/19 History (diphenhydramine)] lovastatin 40 mg PO QPM 04/29/19 07/11/19 History solifenacin 5 mg PO DAILY 04/29/19 07/11/19 History spironolactone 25 mg PO 3XW 04/29/19 07/11/19 History methocarbamol 750 mg PO PRN PRN 07/12/19 07/12/19 History Allergies Allergy/AdvReac Type Severity Reaction Status Date / Time amlodipine Allergy Verified 04/29/19 09:33 lisinopril Allergy Verified 04/29/19 09:33 nifedipine Allergy Verified 04/29/19 09:33 spironolactone Allergy Verified 04/29/19 09:33 Review of Systems Review of Systems ROS: Yes All systems reviewed with the patient and are negative except as otherwise documented Exam Vital Signs (past 8 hours): - 07/15/19 10:59 07/15/19 15:48 Temperature 98 F 97.6 F Pulse Rate 86 91 H Respiratory Rate 20 20 Blood Pressure 130/70 161/94 H Pulse Oximetry 93 96 Oxygen Delivery Method Room Air Oxygen Flow Rate 0 Narrative Exam Narrative: On physical exam, patient is alert and oriented x3. Patient has normal range of motion of the upper extremities with no pain or instability with range of motion of bilateral shoulders, elbow, wrist, and fingers. Patient has some swelling to the dorsal aspect of the left hand. But is nontender to palpation throughout the hand with no crepitus or instability. Does have positive dorsiflexion and plantar flexion with some mild weakness at 4+ out of 5. Normal sensation throughout the lower extremity. Palpable pedal pulses. Nontender to palpation throughout the lower extremities with no sign of any swelling. Compartments are soft. Objective Labs Result Diagrams: 07/13/19 06:02 07/13/19 06:02 Assessment & Plan Assessment & Plan narrative: Patient recently had a CT and MRI that shows significant foraminal stenosis as well as spinal stenosis. These findings were reviewed with 1 of our spine surgeons. Patient has been made an appointment to be seen on Sunday to discuss treatment options for the cervical spine. Time Spent With Patient Time with patient: 15-24 minutes
[2019-07-15] MEDS: TRAMADOL 50 MG TABLET PO (18:44)
[2019-07-15] MEDS: LOVASTATIN 20 MG TABLET 40 MG PO (21:57)
[2019-07-16] MEDS: CEFTRIAXONE 1 GM/50 ML FROZ.PIGGY IV (00:12)
[2019-07-16] MEDS: TRAMADOL 50 MG TABLET PO ×2 (00:34→14:38)
[2019-07-16] MEDS: ACETAMINOPHEN 325 MG TABLET 650 MG PO (00:35)
[2019-07-16 03:50] VITALS: BP 156/91; PULSE 88; RESP 20; TEMP 36.6; O2SAT 93
--- NOTE | 2019-07-16 05:32 | PC.NURSE ---
Pt was able to answer all orientation questions after a few minutes and guesses, takes her a minute to figure the date etc; definitely still some confusion however. Very minimal output reported on evening shift. No void yet so Bladder scanned at midnight for 238mL; ALMA Dooley notified and we will reassess for any urine output. @0530- Pt had voided only a super light weight brief (incontinent) and was bladder scanned after showing only 174mL; ALMA Dooley notified and we will see how her labs look this morning. T&P q2h with bed and pillow support. B/L SCDs on throughout night. Tramadol given for back pain.
[2019-07-16 06:05] LABS: BUN Creatinine Ratio 28.7 (6-22); Blood Urea Nitrogen 35 mg/dL (7-17); Calcium 8.7 mg/dL (8.4-10.2); Carbon Dioxide 24 mmol/L (22-32); Chloride 100 mmol/L (98-107); Glucose 111 mg/dL (80-110); HEMOLYSIS < 15 (0-50); Potassium 4.3 mmol/L (3.4-5.1); Sodium 132 mmol/L (137-145)
[2019-07-16 08:40] VITALS: BP 164/97; PULSE 89; RESP 18; TEMP 37.3; O2SAT 93
[2019-07-16] MEDS: ENOXAPARIN 40 MG/0.4 ML SYRINGE SUBCUT (09:09)
[2019-07-16] MEDS: LOSARTAN 50 MG TABLET PO (09:09)
[2019-07-16] MEDS: carvediloL 25 MG TABLET PO (09:09)
--- NOTE | 2019-07-16 10:55 | CM.DPC ---
DCP Continued:RORO/RN Spoke with Amairani at [facility] about patient coming to facility today. Amairani agreed to accept patient today and [facility] is working on transport time. RORO/RN asked if [facility] would be willing to get transport for patient back and forth to her appointment with Orthopedics on Sunday the . Amairani said she would get patient to her appointment. Dr. Veliz updated and she will get D/C papers set up and get patient ready for D/C. RORO/RN spoke with Emilia Knox with palliative care and she can work with patient to set up and outpatient appointment rather then waiting as an inpatient for another day and miss the open bed with [facility] and have to get a new [employer] Authorization. Michelle Oreilly RN
--- NOTE | 2019-07-16 11:04 | PM.PN.1 ---
Subjective Subjective Date Patient Seen: 07/16/19 Time Patient Seen: 11:04 Interval history: 84-year-old female who was admitted for confusion also complaining of difficulty with ambulation. Dr. Ramirez consulted on patient yesterday. Had imaging reviewed with spine surgeon. Per nursing patient has remained confused. Exam Vital Signs (past 8 hours): - 07/16/19 03:50 07/16/19 08:40 Temperature 97.9 F 99.1 F Pulse Rate 88 89 Respiratory Rate 20 18 Blood Pressure 156/91 H 164/97 H Pulse Oximetry 93 93 Oxygen Delivery Method Room Air Oxygen Flow Rate 0 Narrative Exam Narrative: Patient lying in bed in no acute distress. 5/5 bilateral upper extremity strength. Sensation intact to light touch throughout bilateral upper extremities. Radial pulses symmetrical. Blas's negative. Objective Labs Result Diagrams: 07/13/19 06:02 07/16/19 05:39 Labs: Laboratory Results - last 24 hr 07/16/19 05:39 Sodium 132 L Potassium 4.3 Chloride 100 Carbon Dioxide 24 BUN 35 H Creatinine 1.22 H Estimated GFR 42.0 L BUN/Creatinine Ratio 28.7 H Glucose 111 H Calcium 8.7 Assessment & Plan Assessment and plan (1) Neck pain: Problem details: Patient is a poor historian and very confused. She has full strength of upper extremities. No acute cord findings on imaging. No restrictions or limitations. Patient will follow up with Dr. Schmitt on July 22 at 2 pm at [place] office. Current visit: Yes Status: Acute
[2019-07-16 11:25] VITALS: BP 136/77; PULSE 84; RESP 18; TEMP 36.8; O2SAT 97
--- NOTE | 2019-07-16 11:30 | OT.IP.TRT ---
Current Diagnoses Metabolic encephalopathy (07/12/19) Cervicalgia (07/12/19) Occupational Therapy Treatment Note M2 OT-IP Current Condition Start: 07/12/19 13:23 Freq: Status: Active Protocol: Document 07/12/19 13:24 CGR (Rec: 07/12/19 13:55 CGR [id number]) Occupational Therapy Current Condition Current Condition Evaluation Date 07/12/19 Treatment Diagnosis Metabolic encephalopathy, HTN, UTI, PNA Diagnosis Onset Date 07/11/19 M3 OT- IP Subjective and Pain Start: 07/12/19 13:23 Freq: Status: Active Protocol: Document 07/16/19 1130 PJM (Rec: 07/16/19 12:40 PJM [id number]) OT- Subjective Occupational Therapy Visit Type Type Administrative Note Visit Start Time 11:30 Notes Attempted to see pt at 1130 and she was being straight cathed and cleaned up by nursing. RN requesting not tx at this time as pt transferring to SNF today and will be too fatigued. Recommend continued OT services at SNF. No charge.
--- NOTE | 2019-07-16 11:35 | PT-IP ANOTE ---
Pt was not seen for PT today secondary to nursing and discharge planning staff recommendation of decrease activity tolerance post straight catherization at 11am, patient will be discharged at 3 pm and staff concerned PT/OT treatment will exhaust patient for transport and transfer at SNF.
--- NOTE | 2019-07-16 12:18 | CM.DPC ---
DCP: EMR reviewed: Patient was seen by Eladia Arias P.A-C and scheduled for an appointment with Dr. hollins on at 2pm at the [place] location but patient is being D/C to [facility] today and would need an appointment in [place]. RORO/RN called Dr. Hollins office and had the appointment changed to July 21 2019 at 4:30PM in [place] office seeing Dr. Hollins. CM/RN updated patients nurse of appointment time change. PASRR faxed, D/C order, MAR for the last 4 days as requested by [facility] and signed medication list. Copy of PASRR given to MATHEUS Saravia to scan into record, Original PASRR placed in patients D/C packet to go with patient to [facility] Michelle Oreilly RN.
[2019-07-16] MEDS: MAG HYDROX/ALUM/SIMETH 30 ML UDC PO (12:21)
[2019-07-16] MEDS: SODIUM CHLORIDE 0.9% FLUSH 10 ML IV (12:21)
--- NOTE | 2019-07-16 12:42 | PC.NURSE ---
Patient will be discharging to [facility] today. Donaldson placed in bladder as patient has been having oliguria and she bladder scanned for 420cc of urine. She had over 400cc out in her donaldson and it was dark tea colored. Patient complained of epigasteric pain, given mylanta and is aware of this. She did not compain of back pain or l. radiating arm pain. She was changed and did have a small amount of urine in her brief before placing the catheter. Patient will be going to [facility] today, later around 1530. She will be rory lifted to a wheel chair and leaving around 1530
--- NOTE | 2019-07-16 15:11 | PC.NURSE ---
Report called to [facility], Patient given a ultram about 20 minutes and helpful.. Patients daughters here and aware of her leaving. Report given to rian shift and patient will be leaving between [id number].
--- NOTE | 2019-07-16 15:27 | CM.DPC ---
DCP Continued: CM/RN met with patients daughter Alisha Zaldivar and Stephanie Pelletier to discuss patients D/C. Patients family was upset that no one had contacted the family to discuss d/C plan. CM/RN talked with the patents family and they agreed with D/C today to [facility] and follow up appointment with Dr. Schmitt on July 20. CM/RN apologized to patents family for a lack of communication and gave them CM/Rn phone number, [facility] information as well as information about Dr. Schmitt who will be evaluating patient for possible neck and back surgery. CM/manager laboratory Tita updated about family frustration. Michelle Oreilly RN
--- NOTE | 2019-07-16 16:38 | P.DS_ITS ---
History of Present Illness History of Present Illness Date Patient Seen: 07/16/19 Chief complaint: Back pain Narrative: Ms. Re Goff is an 84-year-old female with a medical history significant for hypertension, hyperlipidemia, hard of hearing and chronic back pain who presents to the ER brought in by her daughter for increased confusion and weakness. The patient is a difficult historian. The daughter states that this is an acute change that the BP woke up altered this morning. Per the patient she has had progressive weakness and immobility for last 2-3 weeks to the point now she states she cannot get up. Prior to that the patient was able to walk with a cane albeit with difficulty. The patient has chronic back pain with bilateral lower extremity weakness pain and numbness. The patient denies complaints of fevers or chills headaches or dizziness. She denies sore throat or nasal congestion. She denies chest pain or palpitations. She reports no complaints of shortness of breath cough. She denies complaints of abdominal pain or heartburn. She reports feeling somewhat queasy. She reports no changes in bowel or bladder habits and denies urgency frequency or burning on urination. Upon arrival to the ER the patient has temperature of 98.3?, heart rate 96, blood pressure 214/119. Respirations are 20 saturating 99% on room air. Twelve lead EKG is obtained which finds is a sinus rhythm a ventricular rate of 94, right bundle branch block and left anterior fascicular block with left ventricular hypertrophy and left Landaverde axis. No evidence of ST or T-wave changes indicative of ischemia. A chest x-ray is obtained finding mild atypical pneumonia. Head CT is obtained which finds no acute intracranial pathology. A lumbar MRI is obtained due to patient complained of severe back pain which finds multilevel degenerative disc disease with foraminal and spinal stenosis. On laboratory analysis patient has an elevated white count at 13 an elevated hemoglobin 18.8 and hematocrit of 56.2 and platelets of 380. She has a PT of 13.7, INR of 1.2, PTT of 37. Her electrolytes are within normal limits with a BUN of 21 and creatinine 1.1 and a nonfasting glucose of 145. She has elevated bilirubin at 1.4, AST of 40, ALT of 15 and alkaline phosphatase is 70. On urinalysis she is noted to have concentrated urine with a specific gravity of 1.030, dark and yellow in color with sediment, 1+ ketones and positive for leukocyte esterase WBCs and many bacteria. While in the ER the patient presented with persistent severe hypertension up to 232/106. During those times the patient would complain of increasing back pain and headache. The patient received nitroglycerin sublingual, nitroglycerin paste, labetalol and hydralazine to obtain a modest reduction in blood pressure to the 180 systolic. The patient is admitted to the medicine service for altered mental status with urinary tract infection, atypical pneumonia and severe hypertension. Discharge Providers Provider Date of admission: 07/12/19 00:56 Discharge Date: 07/16/19 Primary care physician: Estrada Valles MD Consults: 07/12/19 02:19 Consult to Dietitian, Adult Routine Comment: Reason For Exam: Reflexed from admission 07/12/19 03:01 Consult to Discharge Planning Routine Comment: Consult to Occupational Therapy Evaluate & Treat Comment: Chronic pain and immobility Physician Instructions: Evaluate and treat Consult to Physical Therapy Evaluate & Treat Comment: Chronic low back and BLE pain, immobility Physician Instructions: Evaluate and Treat 07/12/19 16:02 Consult to Occupational Therapy Evaluate & Treat Comment: Physician Instructions: Evaluate and treat 07/15/19 16:25 Consult to Palliative Care Routine Comment: Consulting Provider: Kalyn Knox Discharge provider: Loida Veliz MD Summary Hospital Course Discharge Diagnosis: 1. 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 Hypertensive urgency resolved 3. Hyperlipidemia 4. Hard hearing 5. Acute encephalopathy 6. Hyponatremia 7. Chronic kidney disease stage 3 Hospital Course: Patient was admitted to the hospital with hypertensive urgency. She also had confusion, and complaints of back pain. Patient complained of significant neck pain. She ultimately had a CT and MRI of her cervical spine which confirmed significant spinal cord and foraminal stenosis at multiple levels C4 through C7. There was evidence of nerve impingement. The patient was evaluated by Orthopedic surgery. They felt that while this was significant the patient could be seen as an outpatient to discuss further treatment. Patient's blood pressure was controlled in the hospital. She did receive pain medications for her neck pain which caused more confusion. The narcotics were discontinued and she was given Ultram for pain control. Patient was continued on her usual home medications. As she was unable to ambulate after working with physical therapy and occupational therapy it was felt that she needed care home time for rehabilitation. Patient developed urinary retention and required a Franklin catheter at discharge as well. Patient was deemed appropriate for discharge and arrangements were made for her to discharge home. Status at Discharge Cognitive/behavioral status at discharge: confused Functional status at discharge: bed bound Overall status at discharge: patient is not back to baseline Time Spent with Patient Time spent: Less than 30 minutes Exam Vital Signs (past 8 hours): - 07/16/19 08:40 07/16/19 11:25 Temperature 99.1 F 98.3 F Pulse Rate 89 84 Respiratory Rate 18 18 Blood Pressure 164/97 H 136/77 Pulse Oximetry 93 97 Oxygen Delivery Method Room Air Oxygen Flow Rate 0 Narrative Exam Narrative: Elderly female in no acute distress Lungs: Decreased breath sounds but clear to auscultation Cardiac exam: Regular rate and rhythm normal S1-S2 Abdomen: Soft nontender nondistended Extremities: 2+ edema Objective Labs Result Diagrams: 07/13/19 06:02 07/16/19 05:39 Labs: Laboratory Results - last 24 hr 07/16/19 05:39 Sodium 132 L Potassium 4.3 Chloride 100 Carbon Dioxide 24 BUN 35 H Creatinine 1.22 H Estimated GFR 42.0 L BUN/Creatinine Ratio 28.7 H Glucose 111 H Calcium 8.7 Discharge Plan Discharge Plan Patient Disposition: SNF Transfer to: [facility], [facility] Discharge orders & Medications Prescriptions: New losartan 50 mg Tablet 50 mg PO BID Qty: 30 RF: 0 acetaminophen 325 mg Tablet 650 mg PO Q6HR PRN (Reason: Fever/Mild Pain (1-3)) Qty: 30 RF: 0 tramadol 50 mg Tablet 50 mg PO TID PRN (Reason: Pain, Moderate (4-6)) Qty: 20 RF: 0 lovastatin 20 mg Tablet 40 mg PO BEDTIME 30 Days RF: 0 Continued losartan 50 MG tablet 50 mg PO BID Qty: 0 RF: 0 carvedilol 25 mg tablet 25 mg PO BID RF: 0 lovastatin 40 mg tablet 40 mg PO QPM RF: 0 spironolactone 25 mg tablet 25 mg PO 3XW RF: 0 solifenacin 5 mg tablet 5 mg PO DAILY RF: 0 diphenhydramine HCl [Sleep Aid (diphenhydramine)] 25 mg Tablet 25 mg PO BEDTIME PRN (Reason: Insomnia) RF: 0 methocarbamol 750 mg tablet 750 mg PO PRN PRN (Reason: Pain (Scale Score 1-3)) RF: 0 Follow up/Referrals: Estrada Valles MD [Primary Care Provider] - Sae Schmitt MD [Physician] - (July 20 at 430pm in the [place] Office with Dr. Schmitt.) Diet/Activity/Treatments Diet: Low-sodium and Low-cholesterol Liquid consistency: Normal/Thin Other treatments: Patient has cervical canal stenosis with impingement of her cervical spine. she is scheduled to see Orthopedics on Sunday, would defer PT until ortho evaluation Skin/Wound/Dressing Care Report to your healthcare provider any signs of infection, such as:: increased pain Special Rehabilitation Services Reason for rehabilitation: Recovery r/t decondition Rehab type: Physical therapy and Occupational therapy Discharge Data Primary Care Provider: Estrada Valles V
--- NOTE | 2019-07-16 17:25 | PC.NURSE ---
Patient was rory lifted into wheelchair. Pt was escorted by transport engineer down stairs with aid. Paperwork and prescriptions were placed in [place] envelope and handed to passenger coach driver. Patient left in stable condition.
== END 2019-07-16 16:40 | DRG 71 ==
LOC: ED 07-12 00:15 → AC 07-12 06:07
PROVIDERS: Emergency Medicine; Internal Medicine; Admitting Provider Nurse Practitioner Adult Health; Emergency Provider Emergency Medicine; PCP Internal Medicine; Visit Provider Nurse Practitioner Adult Health
DX: G93.41 Metabolic encephalopathy (principal); N39.0 Urinary tract infection, site not specified; I67.4 Hypertensive encephalopathy; I45.2 Bifascicular block; G92 Toxic encephalopathy; N18.3 Chronic kidney disease, stage 3 (moderate); I12.9 Hypertensive chronic kidney disease with stage 1 through stage 4 chronic kidney disease, or unspecified chronic kidney disease; M48.02 Spinal stenosis, cervical region; E86.0 Dehydration; I16.0 Hypertensive urgency; M54.9 Dorsalgia, unspecified; G82.20 Paraplegia, unspecified; M54.5 Low back pain; E78.5 Hyperlipidemia, unspecified; G95.29 Other cord compression; R33.9 Retention of urine, unspecified; Z87.891 Personal history of nicotine dependence; T40.605A Adverse effect of unspecified narcotics, initial encounter
CPT/HCPCS: 36415; 70450; 71045; 71046; 72125; 72128; 72141; 72148; 80048; 80053; 81001; 82550; 83605; 83690; 83735; 83880; 84145; 84484; 85025; 85610; 85730; 87040; 87077; 87086; 87633; 93005; 93010; 93971; 94762; 96365; 96375; 97162; 97165; 97530; 97535; 99284; 99285; J0360; J1650